=== PATIENT | female | born 1930 | race Caucasian/White ===

== ENCOUNTER 2018-08-26 19:00 | Inpatient (IN) | payer BC, MEDICARE ==
[~2018-08-26] VITALS: Ht 162.6 cm; Wt 60.5 kg
[2018-08-26] MEDS ORDERED: FURO40TA4 PO (19:57)
[2018-08-26] MEDS ORDERED: LEVO100T8 PO (19:57)
[2018-08-26] MEDS ORDERED: FUROSEMIDE 20 MG INJ IV ONE (22:30)
[2018-08-26] MEDS ORDERED: ACETAMINOPHEN 325 MG TAB PO PRN (22:30)
[2018-08-26] MEDS ORDERED: ONDANSETRON 4 MG INJ IV PRN (22:30)
[2018-08-26 23:48] VITALS: Ht 162.6 cm; Wt 60.5 kg
[2018-08-27] VITALS: BP 98/55; PULSE 68; RESP 16
--- NOTE | 2018-08-27 00:04 | ERD ---
ER Documentation Chief Complaint Chief Complaint s/p ground level fall with substantial swelling of bilateral feet HPI 88-year-old female with a history of hypothyroidism brought in by ambulance after a ground-level fall at home. She was walking with her walker in her den when she states that she got twisted up and fell. She complains of bilateral lower extremity pain. She has had bilateral lower extremity severe swelling for the past 2 months which she has not addressed with her primary care doctor. She denies any head injury or loss of consciousness. No chest pain or shortness of breath. She denies any hip pain. ROS All systems reviewed and are negative except as per history of present illness. Medications Home Meds Reported Medications Furosemide* (Furosemide*) 40 Mg Tablet, 40 MG PO DAILY, TAB 08/26/18 Levothyroxine Sodium* (Levothyroxine Sodium*) 100 Mcg Tablet, 100 MCG PO BEFORE BREAKFAST, #30 TAB 08/26/18 Allergies Allergies: Coded Allergies: No Known Allergy (Unverified , 08/26/18) PMhx/Soc Hx Miscellaneous Medical Probl: Yes (HYPOTHYROID) Hx Alcohol Use: No Hx Substance Use: No Hx Tobacco Use: No Smoking Status: Never smoker FmHx Family History: No diabetes Physical Exam Vitals Vital Signs Date Temp Pulse Resp B/P (MAP) Pulse Ox O2 O2 Flow FiO2 Time Delivery Rate 08/26/18 100 18 111/55 95 Room Air 22:50 (73) 08/26/18 95 18 100/71 96 Room Air 22:04 (81) 08/26/18 98.1 106 18 145/60 98 19:15 (88) Physical Exam Const: No acute distress, nontoxic, unkempt Head: Atraumatic Eyes: Normal Conjunctiva ENT: Normal External Ears, Nose and Mouth. Neck: Full range of motion. No meningismus. Resp: Clear to auscultation bilaterally Cardio: Regular rate and rhythm, no murmurs. 2+ distal pulses in all 4 extremities Abd: Soft, non tender, non distended. Normal bowel sounds Skin: No petechiae or rashes Back: No midline or flank tenderness Ext: No cyanosis. Bilateral lower extremity 4+ pitting edema, symmetric. Evidence of contusion with skin avulsions to the right lateral lower leg. No obvious deformities. Limited range of motion at all joints of bilateral lower extremity secondary to pain. Pelvis stable. Hips nontender. Neur: Awake and alert oriented x3, cranial nerves intact, strength and sensations grossly intact but somewhat limited in the lower extremities due to pain. Psych: Normal Mood and Affect Result Diagram: 08/26/18202408/26/182024 Results 24 hrs Laboratory Tests Test 08/26/18 20:25 08/26/18 20:28 08/26/18 22:56 White Blood Count 13.5 10^3/ul Red Blood Count 3.92 10^6/ul Hemoglobin 12.6 g/dl Hematocrit 40.0 % Mean Corpuscular Volume 102.0 fl Mean Corpuscular Hemoglobin 32.1 pg Mean Corpuscular Hemoglobin Concent 31.5 g/dl Red Cell Distribution Width 14.5 % Platelet Count 264 10^3/UL Mean Platelet Volume 9.2 fl Immature Granulocytes % 0.600 % Neutrophils % 93.0 % Lymphocytes % 3.3 % Monocytes % 3.0 % Eosinophils % 0.0 % Basophils % 0.1 % Nucleated Red Blood Cells % 0.0 /100WBC Immature Granulocytes # 0.080 10^3/ul Neutrophils # 12.6 10^3/ul Lymphocytes # 0.5 10^3/ul Monocytes # 0.4 10^3/ul Eosinophils # 0.0 10^3/ul Basophils # 0.0 10^3/ul Nucleated Red Blood Cells # 0.0 10^3/ul Sodium Level 137 mmol/L Potassium Level 3.9 mmol/L Chloride Level 100 mmol/L Carbon Dioxide Level 28 mmol/L Anion Gap 9 Blood Urea Nitrogen 37 mg/dl Creatinine 1.58 mg/dl Est Glomerular Filtrat Rate mL/min mL/min Glucose Level 157 mg/dl Calcium Level 8.8 mg/dl Total Bilirubin 0.2 mg/dl Direct Bilirubin 0.00 mg/dl Indirect Bilirubin 0.2 mg/dl Aspartate Amino Transf (AST/SGOT) 30 IU/L Alanine Aminotransferase (ALT/SGPT) 14 IU/L Alkaline Phosphatase 104 IU/L B-Type Natriuretic Peptide 56600 PG/ML Total Protein 6.2 g/dl Albumin 3.2 g/dl Globulin 3.00 g/dl Albumin/Globulin Ratio 1.06 Prothrombin Time 14.9 Sec Prothrombin Time Ratio 1.2 INR International Normalized Ratio 1.16 Activated Partial Thromboplast Time 34.9 Sec Troponin I 0.041 ng/ml Current Medications Medications Dose Sig/Peña Start Time Status Last (Trade) Ordered Route PRN Stop Time Admin Dose Reason Admin Furosemide 20 mg ONCE ONCE 08/26/18 DC 08/26/18 (Lasix) IV 22:30 08/26/18 22:44 22:31 Ondansetron 4 mg BRIDGE ORDER 08/26/18 HCl (Zofran PRN IV 22:30 08/27/18 Inj) NAUSEA/VOMITI 22:29 NG 650 mg ER BRIDGE 08/26/18 Acetaminophen PRN PO 22:30 08/27/18 (Tylenol .MILD PAIN 22:29 Tab) 1-3 OR TEMP Procedures/MDM EMERGENT LABS AND DIAGNOSTIC STUDIES: Lab Results above were reviewed and interpreted by me. CBC: Leukocytosis, unclear etiology CMP: Elevated BUN and creatinine, consistent with renal insufficiency. Mild hypoalbuminemia. No evidence of electrolyte abnormality, renal failure, hypoglycemia, liver failure Troponin within normal limits, not indicative of cardiac ischemia BNP elevated UA: Pending 12-lead EKG was interpreted by Lindsay Robles MD: Sinus rhythm with first-degree AV block at 91 bpm Left bundle branch block No acute ST or T wave changes suggestive of acute ischemia or STEMI. Radiology Results as interpreted by Radiology below were reviewed by SVarghese Robles MD: Chest x-ray shows cardiomegaly with pulmonary vascular congestion X-ray right tib-fib and femur show evidence of tibial plateau fracture Left femur and tib-fib x-ray shows no acute abnormalities Initial Nursing notes reviewed. Previous Medical Records requested via the Electronic Health Record. EMERGENCY DEPARTMENT COURSE / MEDICAL DECISION MAKING: Patient is presenting after a ground-level fall. On exam she appears to not be taking care of herself at all. She has this bilateral lower extremity edema that has not been addressed. I suspect she most likely has heart failure. Her labs were notable for evidence of renal insufficiency and significantly elevated BNP without other significant abnormalities. Her clinical picture is consistent with heart failure. Lasix 20 mg IV given for diuresis. X-rays of bilateral lower extremities were done showing evidence of a right tibial plateau fracture of with depression. I spoke with the orthopedist adhesion tester and he recommended x- rays of the knee as well as CT, which were ordered. I spoke with the doctor on- call for the patient's primary care doctor, Dr. Downing, who accepted the patient for admission to [facility]. Accepting Care Team: Current data and ongoing care discussed. Time: Time of admission Primary Provider: Dr. Kay Consulting: Dr. Martins with Ortho Outstanding Data: CT right lower extremity Critical Care Time: 35 minutes Treatments/Evaluations: Close monitoring and treatment of unstable vital signs, cardiorespiratory, and neurologic status, while maintaining tight balance of fluid, respiratory, and cardiac interventions. This time includes discussing the case with the patient and the patients family. This time does not include all procedures stated elsewhere in this record. This time also includes reviewing old records, labs and radiological studies. This time includes examining and re- examining the patient. Additionally, this time also includes arranging care with admitting and consulting physicians. Departure Diagnosis: Primary Impression: Fall Encounter type: initial encounter Qualified Codes: W19.XXXA - Unspecified fall, initial encounter Additional Impressions: Acute CHF Heart failure type: unspecified Qualified Codes: I50.9 - Heart failure, unspecified Tibial plateau fracture, right Encounter type: initial encounter Fracture type: closed Qualified Codes: S82.141A - Displaced bicondylar fracture of right tibia, initial encounter for closed fracture SIMÓN (acute kidney injury) Condition: MERY Us MD Aug 27, 2018 00:02
[2018-08-27 02:30] VITALS: BP 94/43; PULSE 75; RESP 19
[2018-08-27] MEDS ORDERED: SPIR100T4 PO (03:08)
[2018-08-27 07:46] VITALS: BP 91/46; PULSE 81; RESP 17
--- NOTE | 2018-08-27 09:28 | CONS ---
Assessment/Plan Assessment/Plan Hospital Course (Demo Recall) This is an 88-year-old female who sustained an acute Schatzker 3 of the right lateral tibial plateau. The depression is minimal as it is 4 mm at the deepest point but mostly around 2 mm. 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 I am recommending to pursue conservative treatment. The patient is agreeable to this plan. Plan: Nonweightbearing right lower extremity Hinged knee brace on at all times. The hinged should be unlocked for full range of motion as tolerated PT/OT DVT prophylaxis Follow-up in 2 weeks. Consultation Date/Type/Reason Admit Date/Time Aug 26, 2018 at 22:21 Date of Consultation: Aug 27, 2018 Reason for Consultation Right tibial plateau fracture Date/Time of Note DATE: 08/27/18 TIME: 09:18 Hx of Present Illness This is an 88-year-old female with multiple medical problems including severe hypothyroidism, CHF, bilateral lower extremity edema. She fell yesterday and sustained a right knee injury. She was found to have a right tibial plateau fracture in the emergency department. Orthopedics was consulted. Patient denies numbness and tingling. She states she has pain only at the knee. Prior to the fall she states she was a community ambulator did use a walker at times. But was able to ambulate around the house as well as outside the house and do small errands. She did have occasional knee pain prior. She has history of cellulitis in the left lower extremity all times as well as occasional ulcers. Patient denies fever, chills, shortness of breath, chest pain, nausea/vomiting, constipation, diarrhea, numbness, and tingling. Past Medical History Hypothyroidism CHF Chronic bilateral lower extremity edema Home Meds Reported Medications Spironolactone* (Spironolactone*) 100 Mg Tablet, 25 MG PO DAILY, TAB 08/27/18 Furosemide* (Furosemide*) 40 Mg Tablet, 40 MG PO DAILY, TAB 08/26/18 Levothyroxine Sodium* (Levothyroxine Sodium*) 100 Mcg Tablet, 100 MCG PO BEFORE BREAKFAST, #30 TAB 08/26/18 Medications Current Medications Ondansetron HCl (Zofran Inj) 4 mg BRIDGE ORDER PRN IV NAUSEA/VOMITING; Start 08/26/18 at 22:30; Stop 08/27/18 at 22:29 Acetaminophen (Tylenol Tab) 650 mg ER BRIDGE PRN PO .MILD PAIN 1-3 OR TEMP; Start 08/26/18 at 22:30; Stop 08/27/18 at 22:29 Acetaminophen (Tylenol Tab) 650 mg Q8H PRN PO MILD PAIN(1-3)OR ELEVATED TEMP; Start 08/27/18 at 01:00 Allergies: Coded Allergies: No Known Allergy (Unverified , 08/26/18) Past Surgical History Past Surgical Hx: noncontributory Family History Significant Family History: no pertinent family hx Social History Alcohol Use: other (Unknown) Smoking Status: Never smoker Exam/Review of Systems Exam Vitals Vital Signs Date Temp Pulse Resp B/P (MAP) Pulse Ox O2 O2 Flow FiO2 Time Delivery Rate 08/27/18 98.5 81 17 91/46 (61) 97 Room Air 07:46 Exam General: Awake, alert, in no acute distress, pleasant and cooperative Heart: regular rhythm Lungs: breathing comfortably, no tachypnea or dyspnea MUSCULOSKELETAL: Right lower extremity: Skin is intact. There is no ecchymosis. There is a knee effusion. There is tenderness to palpation along the lateral and medial aspect of the knee. There is no gross deformity. The remainder of the extremity is nontender to palpation. There is 2+ pitting edema from her toes to mid thigh. There are skin ulcers in the lower leg in multiple stages of healing. chronic venous stasis changes. Sensation intact to light touch in a sural, saphenous, deep peroneal, superficial peroneal, medial and lateral plantar nerve distribution. Motor is intact, patient able to dorsiflex and plantarflex ankle and extend and flex great toe. Dorsalis Pedis pulse +2, Brisk capillary refill. Compartments are soft. Calves non-tender to palpation bilaterally. Results Result Diagram: 08/27/18 0532 08/27/18 0532 Results 24hrs Laboratory Tests Test 08/26/18 20:25 08/26/18 20:28 08/26/18 22:56 08/27/18 05:32 White Blood Count 13.5 H 9.3 # Red Blood Count 3.92 L 3.75 L Hemoglobin 12.6 11.9 L Hematocrit 40.0 37.1 Mean Corpuscular Volume 102.0 H 98.9 Mean Corpuscular 32.1 31.7 Hemoglobin Mean Corpuscular 31.5 L 32.1 Hemoglobin Concent Red Cell Distribution 14.5 14.6 H Width Platelet Count 264 265 Mean Platelet Volume 9.2 9.3 Immature Granulocytes % 0.600 H 0.300 Neutrophils % 93.0 H 87.3 H Lymphocytes % 3.3 L 7.2 L Monocytes % 3.0 4.8 Eosinophils % 0.0 0.2 Basophils % 0.1 0.2 Nucleated Red Blood 0.0 0.0 Cells % Immature Granulocytes # 0.080 H 0.030 Neutrophils # 12.6 H 8.1 H Lymphocytes # 0.5 L 0.7 L Monocytes # 0.4 0.4 Eosinophils # 0.0 0.0 Basophils # 0.0 0.0 Nucleated Red Blood 0.0 0.0 Cells # Sodium Level 137 138 Potassium Level 3.9 3.7 Chloride Level 100 100 Carbon Dioxide Level 28 32 H Anion Gap 9 6 Blood Urea Nitrogen 37 H 36 H Creatinine 1.58 H 1.31 H Est Glomerular Filtrat Rate mL/min Glucose Level 157 103 # Calcium Level 8.8 8.6 Total Bilirubin 0.2 0.5 Direct Bilirubin 0.00 0.00 Indirect Bilirubin 0.2 0.5 Aspartate Amino 30 37 Transf (AST/SGOT) Alanine 14 12 L Aminotransferase (ALT/SG PT) Alkaline Phosphatase 104 106 B-Type Natriuretic 16677 H Peptide Total Protein 6.2 6.0 L Albumin 3.2 L 2.9 L Globulin 3.00 3.10 Albumin/Globulin Ratio 1.06 0.93 Prothrombin Time 14.9 15.0 H Prothrombin Time Ratio 1.2 1.2 INR International 1.16 1.17 Normalized Ratio Activated 34.9 Partial Thromboplast Time Troponin I 0.041 Thyroid Stimulating 10.900 H Hormone (TSH) Free Thyroxine 1.03 Imaging Imaging Hip, femur, knee, tibia x-rays were personally reviewed. She has an acute fracture of her lateral tibial plateau of her right knee. This is a pure depression Schatzker 3. She has moderate severe tricompartmental arthritis as well as severe chondrocalcinosis of the lateral meniscus. Alignment is relatively well-preserved. Diffuse and severe demineralization of the bone CT scan of the right knee was personally reviewed. Demonstrates an isolated depression fracture of the lateral tibial plateau. This is a Schatzker 3. It is depressed between 2-4 mm at the deepest point. There is no significant widening of the joint. Moderate severe tricompartmental arthritis and chondrocalcinosis of the menisci. Medications Medication Current Medications Ondansetron HCl (Zofran Inj) 4 mg BRIDGE ORDER PRN IV NAUSEA/VOMITING; Start 08/26/18 at 22:30; Stop 08/27/18 at 22:29 Acetaminophen (Tylenol Tab) 650 mg ER BRIDGE PRN PO .MILD PAIN 1-3 OR TEMP; Start 08/26/18 at 22:30; Stop 08/27/18 at 22:29 Acetaminophen (Tylenol Tab) 650 mg Q8H PRN PO MILD PAIN(1-3)OR ELEVATED TEMP; Start 08/27/18 at 01:00 FRANCES BA MD Aug 27, 2018 09:28
[2018-08-27 14:00] VITALS: BP 93/48; PULSE 81; RESP 17
[2018-08-27] MEDS ORDERED: LEVOTHYROXINE 100 MCG TAB PO ONE (18:30)
[2018-08-27 19:32] VITALS: BP 100/50; PULSE 92; RESP 20
--- NOTE | 2018-08-27 23:29 | HP ---
Date/Time of Note Date/Time of Note DATE: 08/27/18 TIME: 23:06 Assessment/Plan VTE Prophylaxis Risk score (from Ns)>0 risk: 5 SCD applied (from Ns): No SCD contraindicated: bilateral LE trauma Pharmacological prophylaxis: other Pharm contraindication: other Lines/Catheters IV Catheter Type [facility]from [facility]): [employer] line still needed: No Assessment/Plan Problems: (1) Tibial plateau fracture, right Status: Acute Comment: No surgical intervention at this time. Pain control. Non weight bearing on right lower extremity with knee immobilization and PT evaluation for probable inpatient rehab.. Appreciate Dr. Martins input. Qualifiers: Encounter type: initial encounter Fracture type: closed Qualified Codes: S82.141A - Displaced bicondylar fracture of right tibia, initial encounter for closed fracture (2) Edema of both lower extremities Status: Chronic Comment: Given patient's exam, history of furosemide use and CXR showing cardiomegaly suspect congestive heart failure. Cardiology consult and echocardiogram requested. (3) SIMÓN (acute kidney injury) Status: Acute Comment: possible pre-renal given some of patient's physical exam and imaging studies. Cardiology consult and echocardiogram requested. Optimizing cardiac function will hopefully improve renal function. Cont Hosp Indication/DC Plan: wireless retail manager to assist with senior living placement. Result Diagram: 08/27/18 0532 08/27/18 0532 Results 24hrs Laboratory Tests Test 08/27/18 05:32 White Blood Count 9.3 # Red Blood Count 3.75 L Hemoglobin 11.9 L Hematocrit 37.1 Mean Corpuscular Volume 98.9 Mean Corpuscular Hemoglobin 31.7 Mean Corpuscular Hemoglobin Concent 32.1 Red Cell Distribution Width 14.6 H Platelet Count 265 Mean Platelet Volume 9.3 Immature Granulocytes % 0.300 Neutrophils % 87.3 H Lymphocytes % 7.2 L Monocytes % 4.8 Eosinophils % 0.2 Basophils % 0.2 Nucleated Red Blood Cells % 0.0 Immature Granulocytes # 0.030 Neutrophils # 8.1 H Lymphocytes # 0.7 L Monocytes # 0.4 Eosinophils # 0.0 Basophils # 0.0 Nucleated Red Blood Cells # 0.0 Prothrombin Time 15.0 H Prothrombin Time Ratio 1.2 INR International Normalized Ratio 1.17 Sodium Level 138 Potassium Level 3.7 Chloride Level 100 Carbon Dioxide Level 32 H Anion Gap 6 Blood Urea Nitrogen 36 H Creatinine 1.31 H Est Glomerular Filtrat Rate mL/min Glucose Level 103 # Calcium Level 8.6 Total Bilirubin 0.5 Direct Bilirubin 0.00 Indirect Bilirubin 0.5 Aspartate Amino Transf (AST/SGOT) 37 Alanine Aminotransferase (ALT/SGPT) 12 L Alkaline Phosphatase 106 Total Protein 6.0 L Albumin 2.9 L Globulin 3.10 Albumin/Globulin Ratio 0.93 Thyroid Stimulating Hormone (TSH) 10.900 H Free Thyroxine 1.03 HPI/ROS Admit Date/Time Admit Date/Time Aug 26, 2018 at 22:21 Patient seen and examed Aug 27, 2018 @ 17:00 Hx of Present Illness 88 year old woman status post ground level fall after walker collapsed. Unable to get up on her own or with assistance from sister. Paramedics called and patient brought to [facility] for evaluation. Denies loss of consciousness. In [facility] patient underwent a series of imaging both X-Ray and CT scan. Found to have a right tibial plateau fracture. Admitted for further management. Dr. Martins from orthopedic service consulted. ROS after nine system review pertinent positives and negatives noted below Constitutional: chills Respiratory: shortness of breath (none) Cardiovascular: chest pain (none), edema (bilateral lower extremities ) Musculoskeletal: bone/joint pain ( right knee, right ankle, left knee) PMH/Family/Social Past Medical History retired secondary school special ed teacher. lives with younger sister Medical History: congestive heart failure, hypothyroid Medications Current Medications Acetaminophen (Tylenol Tab) 650 mg Q8H PRN PO MILD PAIN(1-3)OR ELEVATED TEMP; Start 08/27/18 at 01:00 Furosemide (Lasix) 20 mg DAILY PO ; Start 08/28/18 at 09:00 Levothyroxine Sodium (Synthroid) 100 mcg DAILY@06 PO ; Start 08/28/18 at 06:00 Acetaminophen/ Hydrocodone Bitart ([facility] (5/325)) 1 tab Q6H PRN PO MODERATE PAIN LEVEL 4-6; Start 08/27/18 at 19:00 Coded Allergies: No Known Allergy (Unverified , 08/26/18) Past Surgical History Past Surgical Hx: noncontributory, abd aortic aneurysmectomy Family History Significant Family History: no pertinent family hx Social History Alcohol Use: none Smoking Status: Never smoker Drug Use: none Exam/Review of Systems Vital Signs Vitals Vital Signs Date Temp Pulse Resp B/P (MAP) Pulse Ox O2 O2 Flow FiO2 Time Delivery Rate 08/27/18 99.0 92 20 100/50 95 19:32 (67) 08/27/18 Room Air 14:00 Exam Constitutional: alert, oriented, other (disheveled) Head: normocephalic Eyes: nl conjunctiva, EOMI ENMT: mucosa pink and moist Neck: supple, non-tender Respiratory: clear to auscultation Cardiovascular: regular rate and rhythm, systolic murmur Gastrointestinal: soft, nl liver, spleen, non-tender Musculoskeletal: swelling Extremities: edema (right knee), pitting pedal edema, tenderness (right knee) Neurological: MEDICAL CENTER MANAGER II-XII intact, nl mental status, nl speech Skin: nl GILBERTO Buckley MD Aug 27, 2018 23:17
[2018-08-28 01:55] VITALS: BP 97/51; PULSE 82; RESP 18
[2018-08-28] MEDS: LEVOTHYROXINE 100 MCG TAB PO SCH (05:18)
[2018-08-28 07:33] VITALS: BP 100/55; PULSE 81; RESP 18
[2018-08-28] MEDS: FUROSEMIDE 20 MG TAB PO SCH (07:38)
[2018-08-28 14:00] VITALS: BP 106/53; PULSE 89; RESP 18
--- NOTE | 2018-08-28 14:09 | RADRPT ---
Echocardiogram Report Patient Name: Dennis GIBSONtient ID: [id number] : 1930 (88y 3m)Study Date: 08/28/2018 9:00:04 AM Gender: FAccession #: [id number] Tech: CIPRIANO Location: Ref.Physician: GILBERTO NÚÑEZ Height(Cm): BSA: Weight(Kg): Quality: GoodAccount #: Procedures: Echocardiographic Report: Transthoracic echocardiogram with complete 2D, M-Mode, and doppler examination. Indications: Cardiomegaly. Measurements: 2D/M Mode Doppler Measurement Value Normal Range Measurement Value Normal Range LVIDd 2D 5.6 [ 3.8 - 5.2 ] cm JILLIAN Vmax 1.9 [ 2.0 - 4.0 ] cm2 LVIDs 2D 5.1 [ 2.2 - 3.5 ] cm AV Mean Deven 1.2 [ 70.0 - 90.0 ] cm/sec LVPWd 2D 1.0 [ 0.6 - 0.9 ] cm AV Mean PG 6.0 [ 2.0 - 4.0 ] mmHg IVSd 2D 1.1 [ 0.6 - 0.9 ] cm AV Peak Deven 1.5 [ 100.0 - 170.0 ] cm/sec IVS/LVPW 2D 1.0 ratio AV Peak PG 9.0 [ 2.0 - 9.0 ] mmHg LVOT Diam 1.8 [ 2.1 - 2.5 ] cm AV VTI 33.0 cm LVOT Area 2.5 cm2 LVOT Peak Deven 1.1 [ 70.0 - 110.0 ] cm/sec LVOT Peak PG 5.0 [ 2.0 - 6.0 ] mmHg MV E Peak Deven 1.4 [ 60.0 - 130.0 ] cm/sec MV A Peak Deven 1.6 [ 100.0 - 120.0 ] cm/sec MV E/A 0.9 [ 0.8 - 1.5 ] ratio MV Decel Time 187 [ 104 - 258 ] msec Lat E` Deven 0.1 [ 10.0 - 15.0 ] cm/sec Med E` Deven 0.1 cm/sec MV E/A 0.9 [ 0.8 - 1.5 ] ratio TR Peak Deven 3.4 [ 100.0 - 280.0 ] cm/sec TR Peak PG 47.0 mmHg PV Peak Deven 0.8 [ 40.0 - 80.0 ] cm/sec PV Peak PG 3.0 mmHg Findings: Left Ventricle: Normal left ventricular wall thickness. Borderline enlargement of left ventricle cavity. Severe left ventricular systolic dysfunction. Ejection fraction is visually estimated at 25 %. Abnormal Diastolic Function. Right Ventricle: Normal right ventricular size. Normal right ventricular systolic function. Left Atrium: There is mild-moderate enlargement of left atrium. Right Atrium: The right atrium is normal in size. Mitral Valve: Mitral valve leaflets appear moderately thickened. Moderate mitral leaflet calcification. Mild mitral annular calcification. Moderate mitral valve regurgitation. Aortic Valve: Normal appearance of the aortic valve. No significant aortic stenosis with trivial insufficiency. Tricuspid Valve: Normal appearance of the tricuspid valve. Right ventricular systolic pressure is consistent with moderate pulmonary hypertension. Estimated peak PA systolic pressure 50 mmHg. There is mild tricuspid regurgitation. Pulmonic Valve: Normal pulmonic valve appearance. There is trace pulmonic regurgitation. Pericardium: Normal pericardium with no significant pericardial effusion. Aorta: Normal aortic root. IVC: Normal size and normal respiratory collapse consistent with normal right atrial pressure. Conclusions: Normal left ventricular wall thickness. Borderline enlargement of left ventricle cavity. Severe left ventricular systolic dysfunction. Ejection fraction is visually estimated at 25 %. Abnormal Diastolic Function. Normal right ventricular size. Normal right ventricular systolic function. There is mild-moderate enlargement of left atrium. The right atrium is normal in size. Moderate mitral valve regurgitation. No significant aortic stenosis with trivial insufficiency. Right ventricular systolic pressure is consistent with moderate pulmonary hypertension. Estimated peak PA systolic pressure 50 mmHg. There is mild tricuspid regurgitation. Normal pericardium with no significant pericardial effusion. Electronically Signed By: Noel Rose 2018-08-28 14:08:32 PST
--- NOTE | 2018-08-28 14:39 | CONS ---
Assessment/Plan Cardiology NYHA: II Heart Failure Type: Chronic Heart Failure Type: Systolic Assessment/Plan Hospital Course (Demo Recall) Mechanical fall with lower extremity fracture Chronic systolic congestive heart failure Cardiomyopathy with left ventricular ejection fraction 25% Mitral valve regurgitation Acute kidney injury, improved -Patient with mechanical fall with lower extremity fracture. Patient had echocardiogram done on this admission which shows left ventricular ejection fraction 25% with moderate mitral valve regurgitation. -Patient does have lower extremity edema but as per her, this is been long- standing. She denies any shortness of breath and chest x-ray with no evidence of significant pulmonary vascular congestion -Creatinine has since improved, will continue maintenance Lasix as renal function and blood pressure permits -Given depressed left ventricular ejection fraction and mitral valve regurgitation, patient would benefit from MADDY inhibitor for afterload reduction. We will start low-dose and continue as renal function and blood pressure permits -Otherwise, no further inpatient cardiac workup needed at the current time Consultation Date/Type/Reason Admit Date/Time Aug 26, 2018 at 22:21 Patient seen and examed Aug 27, 2018 @ 17:00 Type of Consult Cardiology Reason for Consultation Cardia myopathy Date/Time of Note DATE: 08/28/18 TIME: 14:31 Hx of Present Illness This is an 88-year-old female who presents after a mechanical fall. Patient fell with fracture to her lower extremity. No loss of consciousness, no dizziness. She has also been having lower extremity edema going on for the past few months. She denies shortness of breath, dizziness or palpitations. Patient was found to have a murmur on examination and for this reason cardiology consultation was requested. 12 point review of systems was performed with all pertinent positives and negatives mentioned above and all else is negative Past Medical History Medical History: congestive heart failure, hypothyroid Home Meds Reported Medications Spironolactone* (Spironolactone*) 100 Mg Tablet, 25 MG PO DAILY, TAB 08/27/18 Furosemide* (Furosemide*) 40 Mg Tablet, 40 MG PO DAILY, TAB 08/26/18 Levothyroxine Sodium* (Levothyroxine Sodium*) 100 Mcg Tablet, 100 MCG PO BEFORE BREAKFAST, #30 TAB 08/26/18 Medications Current Medications Acetaminophen (Tylenol Tab) 650 mg Q8H PRN PO MILD PAIN(1-3)OR ELEVATED TEMP; Start 08/27/18 at 01:00 Furosemide (Lasix) 20 mg DAILY PO ; Start 08/28/18 at 09:00 Levothyroxine Sodium (Synthroid) 100 mcg DAILY@06 PO Last administered on 08/28/18at 05:18; Admin Dose 100 MCG; Start 08/28/18 at 06:00 Acetaminophen/ Hydrocodone Bitart ([place] (5/325)) 1 tab Q6H PRN PO MODERATE PAIN LEVEL 4-6; Start 08/27/18 at 19:00 Lisinopril (Zestril) 2.5 mg DAILY PO ; Start 08/29/18 at 09:00; Status UNV Allergies: Coded Allergies: No Known Allergy (Unverified , 08/26/18) Past Surgical History Past Surgical Hx: noncontributory, abd aortic aneurysmectomy Family History Significant Family History: no pertinent family hx Social History Alcohol Use: none Smoking Status: Never smoker Drug Use: none Exam/Review of Systems Vital Signs Vitals Vital Signs Date Temp Pulse Resp B/P (MAP) Pulse Ox O2 O2 Flow FiO2 Time Delivery Rate 08/28/18 98.2 81 18 100/55 96 Room Air 07:33 (70) Intake and Output 08/27/18 08/27/18 08/28/18 1414:59 22:59 06:59 IntakeIntake Total 560 ml 240 ml BalanceBalance 560 ml 240 ml Exam Constitutional: alert, oriented (No apparent distress) Head: normocephalic Respiratory: other (Coarse breath sounds bilaterally, no wheezing) Cardiovascular: regular rate and rhythm, systolic murmur (S1-S2 heard) Gastrointestinal: soft, non-tender, bowel sounds Extremities: edema Labs Result Diagram: 08/27/1853108/27/18531 Imaging Imaging ECG demonstrates sinus rhythm at 91 bpm, first-degree AV block, left ventricular hypertrophy, intra-ventricular conduction delay with QRS 166 ms, nonspecific ST abnormalities Medications Medications Current Medications Acetaminophen (Tylenol Tab) 650 mg Q8H PRN PO MILD PAIN(1-3)OR ELEVATED TEMP; Start 08/27/18 at 01:00 Furosemide (Lasix) 20 mg DAILY PO ; Start 08/28/18 at 09:00 Levothyroxine Sodium (Synthroid) 100 mcg DAILY@06 PO Last administered on 08/28/18at 05:18; Admin Dose 100 MCG; Start 08/28/18 at 06:00 Acetaminophen/ Hydrocodone Bitart ([place] (5/325)) 1 tab Q6H PRN PO MODERATE PAIN LEVEL 4-6; Start 08/27/18 at 19:00 Lisinopril (Zestril) 2.5 mg DAILY PO ; Start 08/29/18 at 09:00; Status UNNoel Pacheco DO Aug 28, 2018 14:39
[2018-08-28] MEDS: LISINOPRIL 5 MG TAB PO SCH (15:26)
--- NOTE | 2018-08-28 17:03 | PN ---
Date/Time of Note Date/Time of Note DATE: 08/28/18 TIME: 16:57 Assessment/Plan VTE Prophylaxis Risk score (from Nsg)>0 risk: 3 SCD applied (from Ns): No SCD contraindicated: other Pharmacological prophylaxis: NA/contraindicated Pharm contraindication: other (skin poor, edema''fx) Lines/Catheters IV Catheter Type (from Nrsg): Peripheral IV Assessment/Plan Result Diagram: 08/27/18 0532 08/27/18 0532 Subjective 24 Hr Interval Summary Free Text/Dictation vry independent older woman who routinely ignores medical instructions and probably not taking thyroid meds approprioately. fell sustaining tibial plateau fx, for conservative care w brace. also poor ejection fx w prior hx chf, now no evidence. chronic lower ext edema, lymphedema toe nails, general condition unkempt for pt, aru eval vs snf' alert, knee hurts with movement, chr edema feet. toe nails long and feet dirty. lungs clear, hr ok cardiac evaluation appreciated recheck [facility] podiatry consult on friday Musculoskeletal: bone/joint pain Exam/Review of Systems Exam Vitals Vital Signs Date Temp Pulse Resp B/P (MAP) Pulse Ox O2 O2 Flow FiO2 Time Delivery Rate 08/28/18 98.2 89 18 106/53 95 Room Air 14:00 (70) Intake and Output 08/27/18 08/27/18 08/28/18 1414:59 22:59 06:59 IntakeIntake Total 560 ml 240 ml BalanceBalance 560 ml 240 ml Medications Medication Current Medications Acetaminophen (Tylenol Tab) 650 mg Q8H PRN PO MILD PAIN(1-3)OR ELEVATED TEMP; Start 08/27/18 at 01:00 Furosemide (Lasix) 20 mg DAILY PO ; Start 08/28/18 at 09:00 Levothyroxine Sodium (Synthroid) 100 mcg DAILY@06 PO Last administered on 08/28/18at 05:18; Admin Dose 100 MCG; Start 08/28/18 at 06:00 Acetaminophen/ Hydrocodone Bitart ([place] (5/325)) 1 tab Q6H PRN PO MODERATE PAIN LEVEL 4-6; Start 08/27/18 at 19:00 Lisinopril (Zestril) 2.5 mg DAILY PO Last administered on 08/28/18at 15:26; Admin Dose 2.5 MG; Start 08/28/18 at 15:00 MARYCRUZ PRASAD MD Aug 28, 2018 17:03
[2018-08-28] MEDS: HYDROCODONE/APAP (5/325) TAB PO PRN (18:10)
[2018-08-28 19:36] VITALS: BP 92/48; PULSE 78; RESP 18
[2018-08-29 01:56] VITALS: BP 90/50; PULSE 71; RESP 18
[2018-08-29] MEDS: LEVOTHYROXINE 100 MCG TAB PO SCH (05:43)
[2018-08-29] MEDS: LISINOPRIL 5 MG TAB PO SCH (07:45)
[2018-08-29] MEDS: FUROSEMIDE 20 MG TAB PO SCH (07:45)
[2018-08-29 08:00] VITALS: BP 95/50; PULSE 72; RESP 18
[2018-08-29 14:00] VITALS: BP 93/45; PULSE 83; RESP 18
--- NOTE | 2018-08-29 15:54 | PN ---
Date/Time of Note Date/Time of Note DATE: 08/29/18 TIME: 15:53 Assessment/Plan VTE Prophylaxis Risk score (from [facility]0 risk: 4 SCD applied (from [facility]): No SCD contraindicated: bilateral LE trauma Pharmacological prophylaxis: heparin Lines/Catheters IV C[facility]ter Type (from [facility]): Peripheral IV Assessment/Plan Problems: (1) Tibial plateau fracture, right Status: Acute Comment: Try for acute rehabilitation evaluation. Continue with care Qualifiers: Encounter type: initial encounter Fracture type: closed Qualified Codes: S82.141A - Displaced bicondylar fracture of right tibia, initial encounter for closed fracture (2) Acute CHF Status: Acute Comment: Adjustment of medications to improve afterload reduction Qualifiers: Heart failure type: unspecified Qualified Codes: I50.9 - Heart failure, unspecified Result Diagram: 08/29/18 0725 08/29/18 0556 Results 24hrs Laboratory Tests Test 08/29/18 05:56 08/29/18 07:25 Sodium Level 141 Potassium Level 4.5 Chloride Level 106 Carbon Dioxide Level 30 Anion Gap 5 Blood Urea Nitrogen 25 H Creatinine 0.74 Est Glomerular Filtrat Rate mL/min Glucose Level 81 Calcium Level 8.6 White Blood Count 6.0 # Red Blood Count 3.37 L Hemoglobin 11.1 L Hematocrit 35.1 L Mean Corpuscular Volume 104.2 H Mean Corpuscular Hemoglobin 32.9 Mean Corpuscular Hemoglobin Concent 31.6 L Red Cell Distribution Width 14.9 H Platelet Count 235 Mean Platelet Volume 9.2 Immature Granulocytes % 0.300 Neutrophils % 80.2 H Lymphocytes % 12.0 L Monocytes % 5.7 Eosinophils % 1.5 Basophils % 0.3 Nucleated Red Blood Cells % 0.0 Immature Granulocytes # 0.020 Neutrophils # 4.8 Lymphocytes # 0.7 L Monocytes # 0.3 Eosinophils # 0.1 Basophils # 0.0 Nucleated Red Blood Cells # 0.0 Subjective 24 Hr Interval Summary Free Text/Dictation Patient resting easily awakened. No complaints Constitutional: no complaints Respiratory: no complaints Cardiovascular: no complaints Exam/Review of Systems Exam Vitals Vital Signs Date Temp Pulse Resp B/P (MAP) Pulse Ox O2 O2 Flow FiO2 Time Delivery Rate 08/29/18 98.3 72 18 95/50 (65) 96 Room Air 08:00 Intake and Output 08/28/18 08/28/1808/29/19 1414:59 22:59 06:59 IntakeIntake Total 240 ml 240 ml BalanceBalance 240 ml 240 ml Constitutional: alert, oriented Neck: supple, non-tender Respiratory: clear to auscultation, normal air movement Cardiovascular: regular rate and rhythm, nl pulses Results Results 24hrs Laboratory Tests Test 08/29/18 05:56 08/29/18 07:25 Sodium Level 141 Potassium Level 4.5 Chloride Level 106 Carbon Dioxide Level 30 Anion Gap 5 Blood Urea Nitrogen 25 H Creatinine 0.74 Est Glomerular Filtrat Rate mL/min Glucose Level 81 Calcium Level 8.6 White Blood Count 6.0 # Red Blood Count 3.37 L Hemoglobin 11.1 L Hematocrit 35.1 L Mean Corpuscular Volume 104.2 H Mean Corpuscular Hemoglobin 32.9 Mean Corpuscular Hemoglobin Concent 31.6 L Red Cell Distribution Width 14.9 H Platelet Count 235 Mean Platelet Volume 9.2 Immature Granulocytes % 0.300 Neutrophils % 80.2 H Lymphocytes % 12.0 L Monocytes % 5.7 Eosinophils % 1.5 Basophils % 0.3 Nucleated Red Blood Cells % 0.0 Immature Granulocytes # 0.020 Neutrophils # 4.8 Lymphocytes # 0.7 L Monocytes # 0.3 Eosinophils # 0.1 Basophils # 0.0 Nucleated Red Blood Cells # 0.0 Medications Medication Current Medications Acetaminophen (Tylenol Tab) 650 mg Q8H PRN PO MILD PAIN(1-3)OR ELEVATED TEMP; Start 08/27/18 at 01:00 Furosemide (Lasix) 20 mg DAILY PO ; Start 08/28/18 at 09:00 Levothyroxine Sodium (Synthroid) 100 mcg DAILY@06 PO Last administered on 08/28/18at 05:18; Admin Dose 100 MCG; Start 08/28/18 at 06:00 Acetaminophen/ Hydrocodone Bitart ([place] (5/325)) 1 tab Q6H PRN PO MODERATE PAIN LEVEL 4-6 Last administered on 08/28/18at 18:10; Admin Dose 1 TAB; Start 08/27/18 at 19:00 Lisinopril (Zestril) 2.5 mg DAILY PO Last administered on 08/28/18at 15:26; Admin Dose 2.5 MG; Start 08/28/18 at 15:00 LAYLA GIBSON MD Aug 29, 2018 15:54
[2018-08-29 19:41] VITALS: BP 95/54; PULSE 96; RESP 20
[2018-08-30 01:16] VITALS: BP 98/55; PULSE 86; RESP 20
[2018-08-30] MEDS: LEVOTHYROXINE 100 MCG TAB PO SCH (06:05)
[2018-08-30 07:49] VITALS: BP 135/78; PULSE 71; RESP 18
[2018-08-30] MEDS: LISINOPRIL 5 MG TAB PO SCH ×2 (08:11→20:34)
[2018-08-30] MEDS: FUROSEMIDE 20 MG TAB PO SCH (08:11)
--- NOTE | 2018-08-30 12:49 | PN ---
Date/Time of Note Date/Time of Note DATE: 08/30/18 TIME: 12:47 Assessment/Plan VTE Prophylaxis Risk score (from Ns)>0 risk: 10 SCD applied (from [facility]): Yes SCD contraindicated: patient refusal Pharmacological prophylaxis: heparin Lines/Catheters IV Catheter Type (from [facility]): Peripheral IV Assessment/Plan Problems: (1) Tibial plateau fracture, right Status: Acute Comment: Awaiting evaluation for the acute rehabilitation unit Qualifiers: Encounter type: initial encounter Fracture type: closed Qualified Codes: S82.141A - Displaced bicondylar fracture of right tibia, initial encounter for closed fracture (2) Acute CHF Status: Acute Comment: Doing well and tolerating MADDY inhibitor in fact with a rise in blood pressure which is generally very proximal good prognostic sign Qualifiers: Heart failure type: unspecified Qualified Codes: I50.9 - Heart failure, unspecified Result Diagram: 08/29/18 0725 08/29/18 0556 Subjective 24 Hr Interval Summary Free Text/Dictation She reports she is feeling well but still has knee pain Constitutional: no complaints Respiratory: no complaints Cardiovascular: no complaints Gastrointestinal: no complaints Exam/Review of Systems Exam Vitals Vital Signs Date Temp Pulse Resp B/P (MAP) Pulse Ox O2 O2 Flow FiO2 Time Delivery Rate 08/30/18 97.8 71 18 135/78 97 07:49 (97) 08/29/18 Room Air 08:00 Intake and Output 08/29/18 08/29/18 08/30/18 1515:00 23:00 07:00 IntakeIntake Total 640 ml 440 ml OutputOutput Total 0 ml BalanceBalance 640 ml 440 ml 0 ml Constitutional: alert, oriented Respiratory: clear to auscultation, normal air movement Cardiovascular: regular rate and rhythm, nl pulses Gastrointestinal: soft, nl liver, spleen, non-tender Extremities: other (Hypertrophy toenail) Medications Medication Current Medications Acetaminophen (Tylenol Tab) 650 mg Q8H PRN PO MILD PAIN(1-3)OR ELEVATED TEMP; Start 08/27/18 at 01:00 Furosemide (Lasix) 20 mg DAILY PO Last administered on 08/30/18at 08:11; Admin Dose 20 MG; Start 08/28/18 at 09:00 Levothyroxine Sodium (Synthroid) 100 mcg DAILY@06 PO Last administered on 08/21 at 06:05; Admin Dose 100 MCG; Start 08/28/18 at 06:00 Acetaminophen/ Hydrocodone Bitart ([place] (5/325)) 1 tab Q6H PRN PO MODERATE PAIN LEVEL 4-6 Last administered on 08/28/18at 18:10; Admin Dose 1 TAB; Start 08/27/18 at 19:00 Lisinopril (Zestril) 2.5 mg QHS PO ; Start 08/30/18 at 21:00 LAYLA GIBSON MD Aug 30, 2018 12:49
[2018-08-30 14:38] VITALS: BP 90/48; PULSE 71; RESP 16
[2018-08-30 20:05] VITALS: BP 98/48; PULSE 85; RESP 17
--- NOTE | 2018-08-30 23:03 | CONS ---
Assessment/Plan Assessment/Plan Problems: (1) Onychomycosis Comment: Discussed foot care and foot hygiene in detail with patient. Patient will have bedside debridement of her toenails. I recommend foot care and evaluation on an outpatient basis once discharged from the hospital since patient is unable to reach her feet adequately to care for her feet. (2) Hammertoe, bilateral (3) Tibial plateau fracture, right Status: Acute Comment: Under care of orthopedic surgery Qualifiers: Qualified Codes: S82.141A - Displaced bicondylar fracture of right tibia, initial encounter for closed fracture (4) Edema of both lower extremities Status: Chronic (5) Fall Status: Acute Qualifiers: Qualified Codes: W19.XXXA - Unspecified fall, initial encounter Assessment/Plan (Daily) Thank you again for involving me in the care of this patient. If you have any questions regarding this case, please feel free to contact me at pager: or reach me at mobile: [phone]. Consultation Date/Type/Reason Admit Date/Time Aug 26, 2018 at 22:21 Patient seen and examed Aug 27, 2018 @ 17:00 Date of Consultation: Aug 30, 2018 Type of Consult Foot and ankle surgery Reason for Consultation Evaluation of severely dystrophic toenails; foot evaluation. Requesting Provider: LAYLA GIBSON MD Date/Time of Note DATE: 08/30/18 TIME: 22:52 Hx of Present Illness Thank you very much for your kind consultation. As you very well know, this is an 88 year old female patient who is status post ground level fall after walker collapsed. Patient reports difficulty getting up without assistance. Apparently paramedics were called and patient was brought to the ER. Denies loss of co nsciousness, SOB, CP. Patient was found to have a right tibial plateau fracture. I was consulted for evaluation of her feet, especially her severely dystrophic toenails. Patient denies foot pain today and reports no prior injury to her feet. As per history of present illness. Past Medical History As per history of present illness. Medical History: congestive heart failure, hypothyroid Home Meds Reported Medications Spironolactone* (Spironolactone*) 100 Mg Tablet, 25 MG PO DAILY, TAB 08/27/18 Furosemide* (Furosemide*) 40 Mg Tablet, 40 MG PO DAILY, TAB 08/26/18 Levothyroxine Sodium* (Levothyroxine Sodium*) 100 Mcg Tablet, 100 MCG PO BEFORE BREAKFAST, #30 TAB 08/26/18 Medications Current Medications Acetaminophen (Tylenol Tab) 650 mg Q8H PRN PO MILD PAIN(1-3)OR ELEVATED TEMP; Start 08/27/18 at 01:00 Furosemide (Lasix) 20 mg DAILY PO Last administered on 08/30/18at 08:11; Admin Dose 20 MG; Start 08/28/18 at 09:00 Levothyroxine Sodium (Synthroid) 100 mcg DAILY@06 PO Last administered on 08/30/18at 06:05; Admin Dose 100 MCG; Start 08/28/18 at 06:00 Acetaminophen/ Hydrocodone Bitart ([place] (5/325)) 1 tab Q6H PRN PO MODERATE PAIN LEVEL 4-6 Last administered on 08/28/18at 18:10; Admin Dose 1 TAB; Start 08/27/18 at 19:00 Lisinopril (Zestril) 2.5 mg QHS PO ; Start 08/30/18 at 21:00 Allergies: Coded Allergies: No Known Allergy (Unverified , 08/26/18) Past Surgical History Past Surgical Hx: noncontributory, abd aortic aneurysmectomy Social History Alcohol Use: none Smoking Status: Never smoker Drug Use: none Exam/Review of Systems Exam Vitals Vital Signs Date Temp Pulse Resp B/P (MAP) Pulse Ox O2 O2 Flow FiO2 Time Delivery Rate 08/30/18 98.3 85 17 98/48 (65) 95 20:05 08/29/18 Room Air 08:00 Intake and Output 08/29/18 08/29/18 08/30/18 1515:00 23:00 07:00 IntakeIntake Total 640 ml 440 ml OutputOutput Total 0 ml BalanceBalance 640 ml 440 ml 0 ml Exam Patient is laying supine in bed in no acute distress. Patient has bilateral lower extremity edema. No heel decubitus ulceration noted on bilateral feet. There is no evidence of open wound on both of her lower legs and feet. Patient does have severe dystrophic and discolored toenails with subungual debris. Contracted toes noted on bilateral feet. DP and PT are palpable with normal capillary filling time and temperature gradient. Labs reviewed. Results Result Diagram: 08/29/18 0725 08/29/18 0556 Medications Medication Current Medications Acetaminophen (Tylenol Tab) 650 mg Q8H PRN PO MILD PAIN(1-3)OR ELEVATED TEMP; Start 08/27/18 at 01:00 Furosemide (Lasix) 20 mg DAILY PO Last administered on 08/30/18at 08:11; Admin Dose 20 MG; Start 08/28/18 at 09:00 Levothyroxine Sodium (Synthroid) 100 mcg DAILY@06 PO Last administered on 08/30/18at 06:05; Admin Dose 100 MCG; Start 08/28/18 at 06:00 Acetaminophen/ Hydrocodone Bitart ([place] (5/325)) 1 tab Q6H PRN PO MODERATE PAIN LEVEL 4-6 Last administered on 08/28/18at 18:10; Admin Dose 1 TAB; Start 08/27/18 at 19:00 Lisinopril (Zestril) 2.5 mg QHS PO ; Start 08/30/18 at 21:00 BERNARD MARIEE DPM Aug 30, 2018 23:03
[2018-08-31 02:37] VITALS: BP 100/54; PULSE 77; RESP 19
[2018-08-31] MEDS: LEVOTHYROXINE 100 MCG TAB PO SCH (05:49)
[2018-08-31 07:18] VITALS: BP 99/55; PULSE 81; RESP 16
[2018-08-31 09:09] VITALS: BP 114/57; PULSE 91
[2018-08-31] MEDS: FUROSEMIDE 20 MG TAB PO SCH (09:10)
[2018-08-31] MEDS: ACETAMINOPHEN 325 MG TAB PO PRN (12:06)
--- NOTE | 2018-08-31 12:44 | PN ---
Date/Time of Note Date/Time of Note DATE: 08/31/18 TIME: 12:38 Assessment/Plan VTE Prophylaxis Risk score (from Nsg)>0 risk: 10 SCD applied (from Ns): No SCD contraindicated: bilateral LE trauma (fracture rt lg) Pharmacological prophylaxis: NA/contraindicated Pharm contraindication: other (fx) Lines/Catheters IV Catheter Type (from Nrsg): Peripheral IV Urinary Cath still in place: No Assessment/Plan Result Diagram: 08/29/18 0725 08/29/18 0556 Subjective 24 Hr Interval Summary Free Text/Dictation rt tibial plateau fx. now in brace, nwb, transfer training, may be up awaiting aru acceptance hypothyroid, on rx hbp, bp ok on current meds ashd, poor ef, stable on lasix, kemal for now difficulty with self care alert, talkative. lungs sound clear, hr ok, no edema no lying in bed Musculoskeletal: bone/joint pain Exam/Review of Systems Exam Vitals Vital Signs Date Temp Pulse Resp B/P (MAP) Pulse Ox O2 O2 Flow FiO2 Time Delivery Rate 08/31/18 91 114/57 09:09 (76) 08/31/18 97.6 16 98 Room Air 07:18 Intake and Output 08/30/18 08/30/18 08/31/18 1515:00 23:00 07:00 IntakeIntake Total 240 ml 240 ml BalanceBalance 240 ml 240 ml Medications Medication Current Medications Acetaminophen (Tylenol Tab) 650 mg Q8H PRN PO MILD PAIN(1-3)OR ELEVATED TEMP Last administered on 08/31/18at 12:06; Admin Dose 650 MG; Start 08/27/18 at 01:00 Furosemide (Lasix) 20 mg DAILY PO Last administered on 08/31/18at 09:10; Admin Dose 20 MG; Start 08/28/18 at 09:00 Levothyroxine Sodium (Synthroid) 100 mcg DAILY@06 PO Last administered on 08/31/18at 05:49; Admin Dose 100 MCG; Start 08/28/18 at 06:00 Acetaminophen/ Hydrocodone Bitart ([place] (5/325)) 1 tab Q6H PRN PO MODERATE PAIN LEVEL 4-6 Last administered on 08/28/18at 18:10; Admin Dose 1 TAB; Start 08/27/18 at 19:00 Lisinopril (Zestril) 2.5 mg QHS PO ; Start 08/30/18 at 21:00 MARYCRUZ PRASAD MD Aug 31, 2018 12:44
[2018-08-31 14:27] VITALS: BP 101/68; PULSE 78; RESP 16
[2018-08-31] MEDS: HYDROCODONE/APAP (5/325) TAB PO PRN (16:22)
--- NOTE | 2018-08-31 18:27 | CONS ---
Assessment/Plan Cardiology NYHA: II Heart Failure Type: Chronic Heart Failure Type: Systolic Assessment/Plan Hospital Course (Demo Recall) Mechanical fall with lower extremity fracture Chronic systolic congestive heart failure Cardiomyopathy with left ventricular ejection fraction 25% Mitral valve regurgitation Acute kidney injury, improved -Continue MADDY inhibitor as renal function and blood pressure tolerates. -Lasix as renal function blood pressure tolerates -If blood pressure remains stable, consider initiation of beta-manuel Consultation Date/Type/Reason Admit Date/Time Aug 27, 2018 at 18:45 Initial Consult Date 08/30/18 Type of Consult Cardiology Requesting Provider: LAYLA GIBSON MD Date/Time of Note DATE: 08/31/18 TIME: 18:25 24 HR Interval Summary Free Text/Dictation No shortness of breath, palpitations or dizziness Exam/Review of Systems Vital Signs Vitals Vital Signs Date Temp Pulse Resp B/P (MAP) Pulse Ox O2 O2 Flow FiO2 Time Delivery Rate 08/31/18 97.8 78 16 101/68 94 Room Air 14:27 (79) Intake and Output 08/30/18 08/30/18 08/31/18 1515:00 23:00 07:00 IntakeIntake Total 240 ml 240 ml BalanceBalance 240 ml 240 ml Exam Constitutional: alert, oriented (No apparent distress) Respiratory: other (Coarse breath sounds bilaterally, no wheezing) Cardiovascular: regular rate and rhythm (S1-S2 heard), systolic murmur Gastrointestinal: soft, non-tender, bowel sounds Extremities: edema (brace lower extremity) Labs Result Diagram: 08/29/18 0725 08/29/18 0556 Medications Medications Current Medications Acetaminophen (Tylenol Tab) 650 mg Q8H PRN PO MILD PAIN(1-3)OR ELEVATED TEMP Last administered on 08/31/18at 12:06; Admin Dose 650 MG; Start 08/27/18 at 01:00 Furosemide (Lasix) 20 mg DAILY PO Last administered on 08/31/18at 09:10; Admin Dose 20 MG; Start 08/28/18 at 09:00 Levothyroxine Sodium (Synthroid) 100 mcg DAILY@06 PO Last administered on 08/31/18at 05:49; Admin Dose 100 MCG; Start 08/28/18 at 06:00 Acetaminophen/ Hydrocodone Bitart ([place] (5/325)) 1 tab Q6H PRN PO MODERATE PAIN LEVEL 4-6 Last administered on 08/31/18at 16:22; Admin Dose 1 TAB; Start 08/27/18 at 19:00 Lisinopril (Zestril) 2.5 mg QHS PO ; Start 08/30/18 at 21:00 Noel Rose DO Aug 31, 2018 18:27
[2018-08-31 19:45] VITALS: BP 108/60; PULSE 75; RESP 13
[2018-08-31 20:00] VITALS: BP 100/60; PULSE 75; RESP 19
[2018-08-31] MEDS: LISINOPRIL 5 MG TAB PO SCH (20:15)
--- NOTE | 2018-08-31 21:05 | PN ---
Date/Time of Note Date/Time of Note DATE: 08/31/18 TIME: 21:05 Assessment/Plan Lines/Catheters IV Catheter Type (from [facility]): Saline Lock Short in Place (from [facility]): No Exam/Review of Systems Vital Signs Vitals Vital Signs Date Temp Pulse Resp B/P (MAP) Pulse Ox O2 O2 Flow FiO2 Time Delivery Rate 08/31/18 98.2 75 13 108/60 93 Room Air 19:45 (76) Intake and Output 08/30/18 08/30/18 08/31/18 1414:59 22:59 06:59 IntakeIntake Total 240 ml 240 ml BalanceBalance 240 ml 240 ml Results Result Diagram: 08/29/18 0725 08/29/18 0556 BERNARD MARIEE DPM Aug 31, 2018 21:05
[2018-09-01 02:00] VITALS: BP 101/59; PULSE 74; RESP 19
[2018-09-01] MEDS: LEVOTHYROXINE 100 MCG TAB PO SCH (06:08)
[2018-09-01 07:40] VITALS: BP 101/50; PULSE 75; RESP 20
[2018-09-01] MEDS: FUROSEMIDE 20 MG TAB PO SCH (09:00)
[2018-09-01 09:04] VITALS: BP 98/65
[2018-09-01] MEDS: ACETAMINOPHEN 325 MG TAB PO PRN (14:01)
[2018-09-01 14:35] VITALS: BP 101/56; PULSE 83; RESP 16
--- NOTE | 2018-09-01 16:48 | CONS ---
Assessment/Plan Cardiology NYHA: II Heart Failure Type: Chronic Heart Failure Type: Systolic Assessment/Plan Hospital Course (Demo Recall) Mechanical fall with lower extremity fracture Chronic systolic congestive heart failure Cardiomyopathy with left ventricular ejection fraction 25% Mitral valve regurgitation Acute kidney injury, improved -Continue MADDY inhibitor as renal function and blood pressure tolerates. -Lasix as renal function blood pressure tolerates -If blood pressure remains stable, consider initiation of beta-manuel Consultation Date/Type/Reason Admit Date/Time Aug 27, 2018 at 18:45 Initial Consult Date 08/30/18 Type of Consult Cardiology Requesting Provider: LAYLA GIBSON MD Date/Time of Note DATE: 09/01/18 TIME: 16:47 24 HR Interval Summary Free Text/Dictation Denies current shortness of breath, chest pain or palpitations Exam/Review of Systems Vital Signs Vitals Vital Signs Date Temp Pulse Resp B/P (MAP) Pulse Ox O2 O2 Flow FiO2 Time Delivery Rate 09/01/18 97.9 83 16 101/56 94 Room Air 14:35 (71) Intake and Output 08/31/18 08/31/18 09/01/18 1515:00 23:00 07:00 IntakeIntake Total 400 ml BalanceBalance 400 ml Exam Constitutional: alert, oriented (No apparent distress) Respiratory: other (Coarse breath sounds bilaterally, no wheezing) Cardiovascular: regular rate and rhythm (S1-S2 heard), systolic murmur Gastrointestinal: soft, non-tender, bowel sounds Extremities: edema Labs Result Diagram: 08/29/18 0725 08/29/18 0556 Results 24hrs Laboratory Tests Test 08/31/18 19:59 Bedside Glucose 119 Medications Medications Current Medications Acetaminophen (Tylenol Tab) 650 mg Q8H PRN PO MILD PAIN(1-3)OR ELEVATED TEMP Last administered on 09/01/18at 14:01; Admin Dose 650 MG; Start 08/27/18 at 01:00 Furosemide (Lasix) 20 mg DAILY PO Last administered on 08/31/18at 09:10; Admin Dose 20 MG; Start 08/28/18 at 09:00 Levothyroxine Sodium (Synthroid) 100 mcg DAILY@06 PO Last administered on 09/01/18at 06:08; Admin Dose 100 MCG; Start 08/28/18 at 06:00 Acetaminophen/ Hydrocodone Bitart ([place] (5/325)) 1 tab Q6H PRN PO MODERATE PAIN LEVEL 4-6 Last administered on 08/31/18at 16:22; Admin Dose 1 TAB; Start 08/27/18 at 19:00 Lisinopril (Zestril) 2.5 mg QHS PO ; Start 08/30/18 at 21:00 Noel Rose DO Sep 01, 2018 16:48
[2018-09-01 20:17] VITALS: BP 109/51; PULSE 85; RESP 18
[2018-09-01] MEDS: LISINOPRIL 5 MG TAB PO SCH (20:41)
[2018-09-02 01:52] VITALS: BP 110/59; PULSE 79; RESP 18
[2018-09-02] MEDS: LEVOTHYROXINE 100 MCG TAB PO SCH (05:08)
[2018-09-02 08:04] VITALS: BP 105/51; PULSE 55; RESP 18
[2018-09-02] MEDS: FUROSEMIDE 20 MG TAB PO SCH (08:22)
[2018-09-02] MEDS: ACETAMINOPHEN 325 MG TAB PO PRN (09:10)
--- NOTE | 2018-09-02 12:33 | PN ---
Date/Time of Note Date/Time of Note DATE: 09/02/18 TIME: 12:30 Assessment/Plan VTE Prophylaxis Risk score (from Ns)>0 risk: 3 SCD applied (from Ns): No SCD contraindicated: bilateral LE trauma Pharmacological prophylaxis: NA/contraindicated Pharm contraindication: other (tibial fracture, fragilke skin on the legs) Lines/Catheters IV Catheter Type (from Nrs): Peripheral IV Urinary Cath still in place: No Assessment/Plan Result Diagram: 08/29/18 0725 08/29/18 0556 Subjective 24 Hr Interval Summary Free Text/Dictation awaiting authorization for aru transfer as far as i can detrermine she remains nwb rt leg and very weak with transfers, ok w bed excercises, no sob at rest bp is ok lungs sound clear, no edema, 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 Musculoskeletal: bone/joint pain Exam/Review of Systems Exam Vitals Vital Signs Date Temp Pulse Resp B/P (MAP) Pulse Ox O2 O2 Flow FiO2 Time Delivery Rate 09/02/18 98.0 55 18 105/51 96 Room Air 08:04 (69) Intake and Output 09/01/18 09/01/18 09/02/18 1515:00 23:00 07:00 IntakeIntake Total 480 ml 240 ml BalanceBalance 480 ml 240 ml Medications Medication Current Medications Acetaminophen (Tylenol Tab) 650 mg Q8H PRN PO MILD PAIN(1-3)OR ELEVATED TEMP Last administered on 09/02/18at 09:10; Admin Dose 650 MG; Start 08/27/18 at 01:00 Furosemide (Lasix) 20 mg DAILY PO Last administered on 08/31/18at 09:10; Admin Dose 20 MG; Start 08/28/18 at 09:00 Levothyroxine Sodium (Synthroid) 100 mcg DAILY@06 PO Last administered on 09/02/18at 05:08; Admin Dose 100 MCG; Start 08/28/18 at 06:00 Acetaminophen/ Hydrocodone Bitart ([place] (5/325)) 1 tab Q6H PRN PO MODERATE PAIN LEVEL 4-6 Last administered on 08/31/18at 16:22; Admin Dose 1 TAB; Start 08/27/18 at 19:00 Lisinopril (Zestril) 2.5 mg QHS PO ; Start 08/30/18 at 21:00 MARYCRUZ PRASAD MD Sep 02, 2018 12:33
[2018-09-02 14:00] VITALS: BP 122/60; PULSE 74; RESP 18
[2018-09-02 19:46] VITALS: BP 119/59; PULSE 77; RESP 20
[2018-09-02] MEDS: LISINOPRIL 5 MG TAB PO SCH (21:07)
--- NOTE | 2018-09-02 23:49 | PN ---
Date/Time of Note Date/Time of Note DATE: 09/02/18 TIME: 23:49 Assessment/Plan Lines/Catheters IV Catheter Type (from [facility]): Saline Lock Short in Place (from [facility]): No Exam/Review of Systems Vital Signs Vitals Vital Signs Date Temp Pulse Resp B/P (MAP) Pulse Ox O2 O2 Flow FiO2 Time Delivery Rate 09/02/18 98.1 77 20 119/59 95 19:46 (79) 09/02/18 Room Air 14:00 Intake and Output 09/01/18 09/01/18 09/02/18 1515:00 23:00 07:00 IntakeIntake Total 480 ml 240 ml BalanceBalance 480 ml 240 ml Results Result Diagram: 08/29/18 0725 08/29/18 0556 BERNARD MARIEE DPM Sep 02, 2018 23:49
[2018-09-03 01:27] VITALS: BP 123/64; PULSE 83; RESP 20
[2018-09-03] MEDS: LEVOTHYROXINE 100 MCG TAB PO SCH (06:32)
[2018-09-03 08:00] VITALS: BP 106/57; PULSE 88
--- NOTE | 2018-09-03 08:56 | PN ---
Date/Time of Note Date/Time of Note DATE: 09/03/18 TIME: 08:53 Assessment/Plan VTE Prophylaxis Risk score (from [facility])>0 risk: 5 SCD applied (from [facility]): No SCD contraindicated: bilateral LE trauma Pharmacological prophylaxis: NA/contraindicated Pharm contraindication: other (fracture) Lines/Catheters IV Catheter Type (from [facility]): Saline Lock Urinary Cath still in place: No Assessment/Plan Result Diagram: 09/03/1852709/03/18527 Results 24hrs Laboratory Tests Test 09/03/18 05:28 White Blood Count 5.9 Red Blood Count 3.77 L Hemoglobin 12.2 Hematocrit 39.5 Mean Corpuscular Volume 104.8 H Mean Corpuscular Hemoglobin 32.4 Mean Corpuscular Hemoglobin Concent 30.9 L Red Cell Distribution Width 15.2 H Platelet Count 302 # Mean Platelet Volume 9.0 Immature Granulocytes % 0.300 Neutrophils % 74.7 Lymphocytes % 17.7 Monocytes % 5.5 Eosinophils % 1.5 Basophils % 0.3 Nucleated Red Blood Cells % 0.0 Immature Granulocytes # 0.020 Neutrophils # 4.4 Lymphocytes # 1.0 Monocytes # 0.3 Eosinophils # 0.1 Basophils # 0.0 Nucleated Red Blood Cells # 0.0 Sodium Level 141 Potassium Level 4.1 Chloride Level 104 Carbon Dioxide Level 34 H Anion Gap 3 L Blood Urea Nitrogen 26 H Creatinine 0.77 Est Glomerular Filtrat Rate mL/min Glucose Level 99 Calcium Level 8.9 Total Bilirubin 0.2 Direct Bilirubin 0.00 Indirect Bilirubin 0.2 Aspartate Amino Transf (AST/SGOT) 21 Alanine Aminotransferase (ALT/SGPT) 19 Alkaline Phosphatase 98 Total Protein 5.8 L Albumin 2.7 L Globulin 3.10 Albumin/Globulin Ratio 0.87 Subjective 24 Hr Interval Summary Free Text/Dictation sitting up in bed, alert. eating without difficulty. vs ok cxr without infiltrate or chf. labs ok, creat back to normal' lungs clear, hr ok, no edema waiting clearance for transfer william dav[facility] pt, brace on knee says some constipation. Gastrointestinal: constipation Musculoskeletal: bone/joint pain Exam/Review of Systems Exam Vitals Vital Signs Date Temp Pulse Resp B/P (MAP) Pulse Ox O2 O2 Flow FiO2 Time Delivery Rate 09/03/18 98.0 83 20 123/64 95 01:27 (83) 09/02/18 Room Air 14:00 Intake and Output 09/02/18 09/02/18 09/03/18 1515:00 23:00 07:00 IntakeIntake Total 780 ml 120 ml 480 ml BalanceBalance 780 ml 120 ml 480 ml Results Results 24hrs Laboratory Tests Test 09/03/18 05:28 White Blood Count 5.9 Red Blood Count 3.77 L Hemoglobin 12.2 Hematocrit 39.5 Mean Corpuscular Volume 104.8 H Mean Corpuscular Hemoglobin 32.4 Mean Corpuscular Hemoglobin Concent 30.9 L Red Cell Distribution Width 15.2 H Platelet Count 302 # Mean Platelet Volume 9.0 Immature Granulocytes % 0.300 Neutrophils % 74.7 Lymphocytes % 17.7 Monocytes % 5.5 Eosinophils % 1.5 Basophils % 0.3 Nucleated Red Blood Cells % 0.0 Immature Granulocytes # 0.020 Neutrophils # 4.4 Lymphocytes # 1.0 Monocytes # 0.3 Eosinophils # 0.1 Basophils # 0.0 Nucleated Red Blood Cells # 0.0 Sodium Level 141 Potassium Level 4.1 Chloride Level 104 Carbon Dioxide Level 34 H Anion Gap 3 L Blood Urea Nitrogen 26 H Creatinine 0.77 Est Glomerular Filtrat Rate mL/min Glucose Level 99 Calcium Level 8.9 Total Bilirubin 0.2 Direct Bilirubin 0.00 Indirect Bilirubin 0.2 Aspartate Amino Transf (AST/SGOT) 21 Alanine Aminotransferase (ALT/SGPT) 19 Alkaline Phosphatase 98 Total Protein 5.8 L Albumin 2.7 L Globulin 3.10 Albumin/Globulin Ratio 0.87 Medications Medication Current Medications Acetaminophen (Tylenol Tab) 650 mg Q8H PRN PO MILD PAIN(1-3)OR ELEVATED TEMP Last administered on 09/02/18at 09:10; Admin Dose 650 MG; Start 08/27/18 at 01:00 Furosemide (Lasix) 20 mg DAILY PO Last administered on 08/31/18at 09:10; Admin Dose 20 MG; Start 08/28/18 at 09:00 Levothyroxine Sodium (Synthroid) 100 mcg DAILY@06 PO Last administered on 09/03/18at 06:32; Admin Dose 100 MCG; Start 08/28/18 at 06:00 Acetaminophen/ Hydrocodone Bitart ([place] (5/325)) 1 tab Q6H PRN PO MODERATE PAIN LEVEL 4-6 Last administered on 08/31/18at 16:22; Admin Dose 1 TAB; Start 08/27/18 at 19:00 Lisinopril (Zestril) 2.5 mg QHS PO Last administered on 09/02/18at 21:07; Admin Dose 2.5 MG; Start 08/30/18 at 21:00 MARYCRUZ PRASAD MD Sep 03, 2018 08:56
[2018-09-03] MEDS ORDERED: LACTULOSE 30ML CUP PO ONE (09:00)
[2018-09-03] MEDS: FUROSEMIDE 20 MG TAB PO SCH (09:17)
[2018-09-03] MEDS: ACETAMINOPHEN 325 MG TAB PO PRN (10:50)
[2018-09-03 14:00] VITALS: BP_SYST 91; PULSE 68; RESP 18
--- NOTE | 2018-09-03 15:48 | CONS ---
Assessment/Plan Cardiology NYHA: II Heart Failure Type: Chronic Heart Failure Type: Systolic Assessment/Plan Hospital Course (Demo Recall) Mechanical fall with lower extremity fracture Chronic systolic congestive heart failure Cardiomyopathy with left ventricular ejection fraction 25% Mitral valve regurgitation Acute kidney injury, improved -Continue MADDY inhibitor as renal function and blood pressure tolerates. -Lasix as renal function blood pressure tolerates -Patient with occasional bradycardia seen on vital signs, would hold off on beta-manuel at the current time. -No new cardiac orders at the current time Consultation Date/Type/Reason Admit Date/Time Aug 27, 2018 at 18:45 Initial Consult Date 08/30/18 Type of Consult Cardiology Requesting Provider: LAYLA GIBSON MD Date/Time of Note DATE: 09/03/18 TIME: 15:47 24 HR Interval Summary Free Text/Dictation Denies chest pain, shortness of breath is better Exam/Review of Systems Vital Signs Vitals Vital Signs Date Temp Pulse Resp B/P (MAP) Pulse Ox O2 O2 Flow FiO2 Time Delivery Rate 09/03/18 98.0 68 18 91/ 94 Room Air 14:00 Intake and Output 09/02/18 09/02/18 09/03/18 1515:00 23:00 07:00 IntakeIntake Total 780 ml 120 ml 480 ml BalanceBalance 780 ml 120 ml 480 ml Exam Constitutional: alert (No apparent distress, no dyspnea with speaking) Head: normocephalic Respiratory: other (Coarse breath sounds bilaterally, no wheezing) Cardiovascular: regular rate and rhythm (S1-S2 heard) Gastrointestinal: soft, non-tender, bowel sounds Extremities: other (Brace right lower extremity) Labs Result Diagram: 09/03/1828 09/03/1828 Results 24hrs Laboratory Tests Test 09/03/18 05:28 White Blood Count 5.9 Red Blood Count 3.77 L Hemoglobin 12.2 Hematocrit 39.5 Mean Corpuscular Volume 104.8 H Mean Corpuscular Hemoglobin 32.4 Mean Corpuscular Hemoglobin Concent 30.9 L Red Cell Distribution Width 15.2 H Platelet Count 302 # Mean Platelet Volume 9.0 Immature Granulocytes % 0.300 Neutrophils % 74.7 Lymphocytes % 17.7 Monocytes % 5.5 Eosinophils % 1.5 Basophils % 0.3 Nucleated Red Blood Cells % 0.0 Immature Granulocytes # 0.020 Neutrophils # 4.4 Lymphocytes # 1.0 Monocytes # 0.3 Eosinophils # 0.1 Basophils # 0.0 Nucleated Red Blood Cells # 0.0 Sodium Level 141 Potassium Level 4.1 Chloride Level 104 Carbon Dioxide Level 34 H Anion Gap 3 L Blood Urea Nitrogen 26 H Creatinine 0.77 Est Glomerular Filtrat Rate mL/min Glucose Level 99 Calcium Level 8.9 Total Bilirubin 0.2 Direct Bilirubin 0.00 Indirect Bilirubin 0.2 Aspartate Amino Transf (AST/SGOT) 21 Alanine Aminotransferase (ALT/SGPT) 19 Alkaline Phosphatase 98 Total Protein 5.8 L Albumin 2.7 L Globulin 3.10 Albumin/Globulin Ratio 0.87 Medications Medications Current Medications Acetaminophen (Tylenol Tab) 650 mg Q8H PRN PO MILD PAIN(1-3)OR ELEVATED TEMP Last administered on 09/03/18 10:50; Admin Dose 650 MG; Start 08/27/18 at 01:00 Furosemide (Lasix) 20 mg DAILY PO Last administered on 09/03/18 09:17; Admin Dose 20 MG; Start 08/28/18 at 09:00 Levothyroxine Sodium (Synthroid) 100 mcg DAILY@06 PO Last administered on 09/03/18 06:32; Admin Dose 100 MCG; Start 08/28/18 at 06:00 Acetaminophen/ Hydrocodone Bitart ([employer] (5/325)) 1 tab Q6H PRN PO MODERATE ASAD N LEVEL 4-6 Last administered on 08/31/18 16:22; Admin Dose 1 TAB; Start 08/27/18 at 19:00 Lisinopril (Zestril) 2.5 mg QHS PO Last administered on 09/02/18 21:07; Admin Dose 2.5 MG; Start 08/30/18 at 21:00 Noel Rose DO Sep 03, 2018 15:48
[2018-09-03 20:00] VITALS: BP 93/41; PULSE 73; RESP 19
[2018-09-03] MEDS: LISINOPRIL 5 MG TAB PO SCH (20:12)
[2018-09-04 02:00] VITALS: BP 95/44; PULSE 75; RESP 18
[2018-09-04] MEDS: LEVOTHYROXINE 100 MCG TAB PO SCH (05:11)
[2018-09-04 07:51] VITALS: BP 96/50; PULSE 63; RESP 18
[2018-09-04] MEDS: FUROSEMIDE 20 MG TAB PO SCH (09:00)
--- NOTE | 2018-09-04 09:13 | PN ---
Date/Time of Note Date/Time of Note DATE: 09/04/18 TIME: 09:09 Assessment/Plan VTE Prophylaxis Risk score (from Nsg)>0 risk: 10 SCD applied (from Nsg): No SCD contraindicated: bilateral LE trauma Pharmacological prophylaxis: NA/contraindicated Pharm contraindication: other (fx tibia) Lines/Catheters IV Catheter Type (from Nrsg): Saline Lock Urinary Cath still in place: No Assessment/Plan Result Diagram: 09/03/1852709/03/18527 Subjective 24 Hr Interval Summary Free Text/Dictation post tibial plateau fx rt leg, nwb status with brace for now. not eligible for aru, looking for alternate placement hyhpothyroid, on replacement cardiomyopathy, low ef, no overt chf, on kemal, lasix, renal fx back to normal hard of hearing, alert, pleasant, tho can be obstiante lungs clear, abd soft, no edema will transfer to snf when placement found and family on board Musculoskeletal: bone/joint pain Exam/Review of Systems Exam Vitals Vital Signs Date Temp Pulse Resp B/P (MAP) Pulse Ox O2 O2 Flow FiO2 Time Delivery Rate 09/04/18 97.9 63 18 96/50 (65) 93 07:51 09/03/18 Room Air 14:00 Intake and Output 09/03/18 09/03/18 09/04/18 1515:00 23:00 07:00 IntakeIntake Total 240 ml BalanceBalance 240 ml Medications Medication Current Medications Acetaminophen (Tylenol Tab) 650 mg Q8H PRN PO MILD PAIN(1-3)OR ELEVATED TEMP Last administered on 09/03/18at 10:50; Admin Dose 650 MG; Start 08/27/18 at 01:00 Furosemide (Lasix) 20 mg DAILY PO Last administered on 09/03/18at 09:17; Admin Dose 20 MG; Start 08/28/18 at 09:00 Levothyroxine Sodium (Synthroid) 100 mcg DAILY@06 PO Last administered on 09/04/18at 05:11; Admin Dose 100 MCG; Start 08/28/18 at 06:00 Acetaminophen/ Hydrocodone Bitart ([place] (5/325)) 1 tab Q6H PRN PO MODERATE PAIN LEVEL 4-6 Last administered on 08/31/18at 16:22; Admin Dose 1 TAB; Start 08/27/18 at 19:00 Lisinopril (Zestril) 2.5 mg QHS PO Last administered on 09/02/18at 21:07; Admin Dose 2.5 MG; Start 08/30/18 at 21:00 MARYCRUZ PRASAD MD Sep 04, 2018 09:13
--- NOTE | 2018-09-04 11:59 | CONS ---
Assessment/Plan Cardiology NYHA: II Heart Failure Type: Chronic Heart Failure Type: Systolic Assessment/Plan Hospital Course (Demo Recall) Mechanical fall with lower extremity fracture Chronic systolic congestive heart failure Cardiomyopathy with left ventricular ejection fraction 25% Mitral valve regurgitation Acute kidney injury, improved -Continue MADDY inhibitor as renal function and blood pressure tolerates. -Lasix as renal function blood pressure tolerates -Patient with occasional bradycardia seen on vital signs, would hold off on beta-manuel at the current time. Consultation Date/Type/Reason Admit Date/Time Aug 27, 2018 at 18:45 Initial Consult Date 08/30/18 Type of Consult Cardiology Requesting Provider: LAYLA GIBSON MD Date/Time of Note DATE: 09/04/18 TIME: 11:58 24 HR Interval Summary Free Text/Dictation Denies chest pain, shortness of breath or palpitations Exam/Review of Systems Vital Signs Vitals Vital Signs Date Temp Pulse Resp B/P (MAP) Pulse Ox O2 O2 Flow FiO2 Time Delivery Rate 09/04/18 97.9 63 18 96/50 (65) 93 07:51 09/03/18 Room Air 14:00 Intake and Output 09/03/18 09/03/18 09/04/18 1515:00 23:00 07:00 IntakeIntake Total 240 ml BalanceBalance 240 ml Exam Constitutional: alert, oriented (No apparent distress, family bedside) Respiratory: other (Coarse breath sounds bilaterally, no wheezing) Cardiovascular: regular rate and rhythm, systolic murmur Gastrointestinal: soft, non-tender, bowel sounds Extremities: edema (Trace left lower extremity) Labs Result Diagram: 09/03/1828 09/03/18527 Medications Medications Current Medications Acetaminophen (Tylenol Tab) 650 mg Q8H PRN PO MILD PAIN(1-3)OR ELEVATED TEMP Last administered on 09/03/18at 10:50; Admin Dose 650 MG; Start 08/27/18 at 01:00 Furosemide (Lasix) 20 mg DAILY PO Last administered on 09/03/18at 09:17; Admin D ose 20 MG; Start 08/28/18 at 09:00 Levothyroxine Sodium (Synthroid) 100 mcg DAILY@06 PO Last administered on 09/04/18at 05:11; Admin Dose 100 MCG; Start 08/28/18 at 06:00 Acetaminophen/ Hydrocodone Bitart ([place] (5/325)) 1 tab Q6H PRN PO MODERATE PAIN LEVEL 4-6 Last administered on 08/31/18at 16:22; Admin Dose 1 TAB; Start 08/27/18 at 19:00 Lisinopril (Zestril) 2.5 mg QHS PO Last administered on 09/02/18at 21:07; Admin Dose 2.5 MG; Start 08/30/18 at 21:00 Noel Rose DO Sep 04, 2018 11:59
[2018-09-04 14:34] VITALS: BP 112/57; PULSE 76; RESP 17
[2018-09-04 19:41] VITALS: BP 112/55; PULSE 89; RESP 20
[2018-09-04] MEDS: LISINOPRIL 5 MG TAB PO SCH (21:09)
[2018-09-05 01:44] VITALS: BP 104/52; PULSE 70; RESP 20
[2018-09-05] MEDS: LEVOTHYROXINE 100 MCG TAB PO SCH (05:56)
[2018-09-05 07:25] VITALS: BP 127/59; PULSE 87; RESP 20
[2018-09-05] MEDS: FUROSEMIDE 20 MG TAB PO SCH (08:40)
[2018-09-05] MEDS ORDERED: LEVALBUTEROL (NEB) 0.31 MG/3 ML AMP HHN STA (09:16)
[2018-09-05] MEDS ORDERED: LEVALBUTEROL (NEB) 0.63 MG/3 ML AMP HHN STA (09:21)
[2018-09-05] MEDS: FUROSEMIDE 20 MG INJ IV SCH (14:00)
[2018-09-05 14:13] VITALS: BP 88/48; PULSE 75; RESP 20
[2018-09-05] MEDS: ALBUTEROL/IPRATROPIUM (NEB) 3 ML AMP HHN SCH ×2 (17:01→20:49)
--- NOTE | 2018-09-05 17:36 | PN ---
Date/Time of Note Date/Time of Note DATE: 09/05/18 TIME: 17:23 Patient seen at 13:45 Assessment/Plan VTE Prophylaxis Risk score (from [facility])>0 risk: 9 SCD applied (from [facility]): No SCD contraindicated: other (lower leg trauma) Pharmacological prophylaxis: other Pharm contraindication: bleeding, other Lines/Catheters IV Catheter Type (from [facility]): Saline Lock Urinary Cath still in place: No Assessment/Plan Problems: (1) SOB (shortness of breath) Status: Acute Comment: Probable cause is CHF with fluid retention since patient did not receive furosemide dose yesterday. Concern is for PE given patient's risk factors after a tibial plateau fracture with immobility and non weight bearing status. If symptoms worsen with obtain LE Doppler and CT angiogram. Have stared patient on breathing treatments prn SOB and O2 by NC to maintain saturations above 90% (2) Tibial plateau fracture, right Status: Acute Comment: Per PT and Ortho service Qualifiers: Encounter type: initial encounter Fracture type: closed Qualified Codes: S82.141A - Displaced bicondylar fracture of right tibia, initial encounter for closed fracture (3) SIMÓN (acute kidney injury) Status: Resolved (4) Acute CHF Status: Acute Comment: Continue medication regimen as per cardiology Qualifiers: Heart failure type: unspecified Qualified Codes: I50.9 - Heart failure, unspecified Result Diagram: 09/03/1828 09/03/18527 Subjective 24 Hr Interval Summary Free Text/Dictation Per nursing staff patient sob this morning with some decrease in O2 saturation. Breathing treatment and oxygen improved patient's symptoms to some degree. Yesterday patient did not receive lasix because of a low BP. Today CXR showing some effusion. Exam/Review of Systems Exam Vitals Vital Signs Date Temp Pulse Resp B/P (MAP) Pulse Ox O2 O2 Flow FiO2 Time Delivery Rate 09/05/18 2.0 17:05 09/05/18 72 25 91 21 17:02 09/05/18 98.2 88/48 (61) Nasal 14:13 Cannula Intake and Output 09/04/18 09/04/18 09/05/18 1414:59 22:59 06:59 IntakeIntake Total 720 ml 240 ml BalanceBalance 720 ml 240 ml Constitutional: alert, other (hard of hearing) Head: normocephalic Neck: supple Respiratory: diminished breath sounds Cardiovascular: regular rate and rhythm Gastrointestinal: soft Extremities: normal pulses Imaging Imaging CXR results reviewed Medications Medication Current Medications Acetaminophen (Tylenol Tab) 650 mg Q8H PRN PO MILD PAIN(1-3)OR ELEVATED TEMP Last administered on 09/03/18 10:50; Admin Dose 650 MG; Start 08/27/18 at 01:00 Levothyroxine Sodium (Synthroid) 100 mcg DAILY@06 PO Last administered on 09/05/18 05:56; Admin Dose 100 MCG; Start 08/28/18 at 06:00 Acetaminophen/ Hydrocodone Bitart ([place] (5/325)) 1 tab Q6H PRN PO MODERATE PAIN LEVEL 4-6 Last administered on 08/31/18 16:22; Admin Dose 1 TAB; Start 08/27/18 at 19:00 Lisinopril (Zestril) 2.5 mg QHS PO Last administered on 09/04/18 21:09; Admin Dose 2.5 MG; Start 08/30/18 at 21:00 Furosemide (Lasix) 20 mg DAILY IV ; Start 09/05/18 at 14:00 Albuterol/ Ipratropium (Duoneb) 3 ml Q4H RESP THERAPY HHN Last administered on 09/05/18 17:01; Admin Dose 3 ML; Start 09/05/18 at 17:00 GILBERTO NÚÑEZ MD Sep 05, 2018 17:34
[2018-09-05] MEDS: ACETAMINOPHEN 325 MG TAB PO PRN (19:57)
[2018-09-05 20:00] VITALS: BP 96/48; PULSE 69; RESP 19
[2018-09-05] MEDS: LISINOPRIL 5 MG TAB PO SCH (20:56)
[2018-09-06] MEDS: ALBUTEROL/IPRATROPIUM (NEB) 3 ML AMP HHN SCH ×6 (00:37→20:34)
[2018-09-06 02:00] VITALS: BP 108/59; PULSE 77; RESP 19
[2018-09-06] MEDS: ACETAMINOPHEN 325 MG TAB PO PRN (06:23)
[2018-09-06] MEDS: LEVOTHYROXINE 100 MCG TAB PO SCH (06:23)
[2018-09-06 07:13] VITALS: BP 102/51; PULSE 73; RESP 18
[2018-09-06] MEDS: FUROSEMIDE 20 MG INJ IV SCH (07:48)
--- NOTE | 2018-09-06 12:54 | PN ---
Date/Time of Note Date/Time of Note DATE: 09/06/18 TIME: 12:50 Assessment/Plan VTE Prophylaxis Risk score (from Ns)>0 risk: 3 SCD applied (from Ns): No SCD contraindicated: other (right tibial plateau fracture) Pharmacological prophylaxis: other Pharm contraindication: other Lines/Catheters IV C[facility]ter Type (from [facility]): Peripheral IV Urinary Cath still in place: No Assessment/Plan Problems: (1) SOB (shortness of breath) Status: Acute Comment: Symptomatic improvement after extra dose of furosemide yesterday and initiation of breathing treatments. Will continue to monitor.. (2) SIMÓN (acute kidney injury) Status: Resolved Comment: Creatinine back to baseline (3) Tibial plateau fracture, right Status: Acute Comment: Non weight bearing. Working with PT. Would benefit from inpatient rehab ([facility]) Qualifiers: Encounter type: initial encounter Fracture type: closed Qualified Codes: S82.141A - Displaced bicondylar fracture of right tibia, initial encounter for closed fracture (4) Acute CHF Status: Acute Comment: As per cardiology Qualifiers: Heart failure type: unspecified Qualified Codes: I50.9 - Heart failure, unspecified Result Diagram: 09/03/1828 09/03/1828 Subjective 24 Hr Interval Summary Free Text/Dictation Sister at bedside. Patient less SOB today. Exam/Review of Systems Exam Vitals Vital Signs Date Temp Pulse Resp B/P (MAP) Pulse Ox O2 O2 Flow FiO2 Time Delivery Rate 09/06/18 74 20 96 Nasal 2.0 09:12 Cannula 09/06/18 97.4 102/51 07:13 (68) 09/05/18 21 17:02 Intake and Output 09/05/18 09/05/18 09/06/18 1515:00 23:00 07:00 IntakeIntake Total 440 ml 200 ml BalanceBalance 440 ml 200 ml Constitutional: alert, oriented, other (hard of hearing) Head: normocephalic Neck: supple Respiratory: clear to auscultation Cardiovascular: regular rate and rhythm Extremities: normal pulses Medications Medication Current Medications Acetaminophen (Tylenol Tab) 650 mg Q8H PRN PO MILD PAIN(1-3)OR ELEVATED TEMP Last administered on 09/06/18at 06:23; Admin Dose 650 MG; Start 08/27/18 at 01:00 Levothyroxine Sodium (Synthroid) 100 mcg DAILY@06 PO Last administered on 09/06/18 06:23; Admin Dose 100 MCG; Start 08/28/18 at 06:00 Acetaminophen/ Hydrocodone Bitart ([place] (5/325)) 1 tab Q6H PRN PO MODERATE PAIN LEVEL 4-6 Last administered on 08/31/18 16:22; Admin Dose 1 TAB; Start 08/27/18 at 19:00 Lisinopril (Zestril) 2.5 mg QHS PO Last administered on 09/04/18 21:09; Admin Dose 2.5 MG; Start 08/30/18 at 21:00 Furosemide (Lasix) 20 mg DAILY IV Last administered on 09/06/18 07:48; Admin Dose 20 MG; Start 09/05/18 at 14:00 Albuterol/ Ipratropium (Duoneb) 3 ml Q4H RESP THERAPY HHN Last administered on 09/06/18 09:11; Admin Dose 3 ML; Start 09/05/18 at 17:00 GILBERTO NÚÑEZ MD Sep 06, 2018 12:54
[2018-09-06 14:46] VITALS: BP 116/46; PULSE 73; RESP 18
[2018-09-06] MEDS: LISINOPRIL 5 MG TAB PO SCH (20:18)
[2018-09-07] MEDS: ALBUTEROL/IPRATROPIUM (NEB) 3 ML AMP HHN SCH ×4 (00:39→12:50)
[2018-09-07 01:45] VITALS: BP 113/61; PULSE 89; RESP 16
[2018-09-07] MEDS: LEVOTHYROXINE 100 MCG TAB PO SCH (06:11)
[2018-09-07 07:53] VITALS: BP 103/54; PULSE 79; RESP 20
[2018-09-07] MEDS ORDERED: FUROSEMIDE 40 MG TAB PO SCH (09:00)
--- NOTE | 2018-09-07 09:06 | PN ---
Date/Time of Note Date/Time of Note DATE: 09/07/18 TIME: 09:02 Assessment/Plan VTE Prophylaxis Risk score (from Ns)>0 risk: 13 SCD applied (from Ns): No SCD contraindicated: bilateral LE trauma Pharmacological prophylaxis: NA/contraindicated Pharm contraindication: other (tibial fx) Lines/Catheters IV C[facility]ter Type (from [facility] Peripheral IV Urinary Cath still in place: No Assessment/Plan Result Diagram: 09/03/1852709/03/18527 Subjective 24 Hr Interval Summary Free Text/Dictation right tibial plateau fx, stable, non wb, getting up with pt some aob, ddid not get dlasix re bp sl low, i would give despite bp, is getting rt therapy now, sl wheeze, no edema, sats ok usp care...placement in progress repeat labs tomorrow Respiratory: shortness of breath Musculoskeletal: bone/joint pain Exam/Review of Systems Exam Vitals Vital Signs Date Temp Pulse Resp B/P (MAP) Pulse Ox O2 O2 Flow FiO2 Time Delivery Rate 09/07/18 98.3 79 20 103/54 98 Nasal 07:53 (70) Cannula 09/07/18 2.0 04:16 09/05/18 21 17:02 Intake and Output 09/06/18 09/06/18 09/07/18 1515:00 23:00 07:00 IntakeIntake Total 300 ml 240 ml BalanceBalance 300 ml 240 ml Medications Medication Current Medications Acetaminophen (Tylenol Tab) 650 mg Q8H PRN PO MILD PAIN(1-3)OR ELEVATED TEMP Last administered on 09/06/18at 06:23; Admin Dose 650 MG; Start 08/27/18 at 01:00 Levothyroxine Sodium (Synthroid) 100 mcg DAILY@06 PO Last administered on 09/07/18at 06:11; Admin Dose 100 MCG; Start 08/28/18 at 06:00 Acetaminophen/ Hydrocodone Bitart ([place] (5/325)) 1 tab Q6H PRN PO MODERATE PAIN LEVEL 4-6 Last administered on 08/31/18at 16:22; Admin Dose 1 TAB; Start 08/27/18 at 19:00 Lisinopril (Zestril) 2.5 mg QHS PO Last administered on 09/06/18at 20:18; Admin Dose 2.5 MG; Start 08/30/18 at 21:00 Albuterol/ Ipratropium (Duoneb) 3 ml Q4H RESP THERAPY HHN Last administered on 09/07/18at 08:58; Admin Dose 3 ML; Start 09/05/18 at 17:00 Furosemide (Lasix) 40 mg DAILY PO ; Start 09/07/18 at 09:00; Status UNMARYCRUZ AVALOS MD Sep 07, 2018 09:06
[2018-09-07] MEDS ORDERED: LISI-313 PO (13:52)
--- NOTE | 2018-09-07 13:53 | PDOCDIS ---
Discharge Instructions DIAGNOSIS Discharge Diagnosis rt tikbial plateau fx chf hypothyroid CONDITION [id number] Patient Condition: [id number] Fair HOME CARE INSTRUCTIONS: [id number] Diet Instructions: [id number] Renal ACTIVITY: [id number] Activity Restrictions: Wmprf2i No Restrictions [id number] Bathing Restrictions: [id number] Shower MARYCRUZ PRASAD MD Sep 07, 2018 13:53
[2018-09-07 14:00] VITALS: BP 109/47; PULSE 60; RESP 18
--- NOTE | 2018-09-07 15:28 | DS ---
DATE OF ADMISSION: 08/27/2018 DATE OF DISCHARGE: 09/07/2018 CHIEF COMPLAINT: Knee pain. FINAL DIAGNOSES: 1. Acute tibial plateau fracture, right knee. 2. 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 3. Hypothyroidism. 4. Hard of hearing. DISCUSSION: This is an 88-year-old woman who is seen only rarely in the office and is not good about understanding her disease and diagnoses. The patient mostly takes her thyroid medication, but has n oted increasing swelling in her leg and was taking some Lasix. She sustained an injury to her right knee and was found to have a tibial plateau fracture and was admitted to the hospital. She was seen by the orthopedic physician who felt that she should be in a hinged cast that could be locked and she should be in a nonweightbearing situation for at least the next 6 weeks. She was also found mildly short of breath with some mild interstitial findings on chest x-ray and some peripheral edema. She w as seen by Dr. Rose and was found to have low ejection fraction and was placed on a low dose of MADDY and her Lasix was continued. The patient really is unable to assist very much with physical therapy because of pain and generalized weakness. She intermittently gets short of breath and has been requ iring inhalation therapy as well. She was treated with IV Lasix, but the nurses were holding it for a low blood pressure. She was changed to oral Lasix. She will continue on lisinopril. The patient will be discharged to [facility] for ongoing bed rest with progressive ambulation as the fracture he als. Her medications will be continued and I will follow her there. Dictated By: MARYCRUZ PRASAD MD SR/NTS Conf#: [id number] DID#: [id number] CC: GILBERTO NÚÑEZ MD; TAHIR ROSE DO;*EndCC*
== END 2018-09-07 18:25 | DRG 563 ==
LOC: E/R 19:00 → 5EC 22:21 → OBSVTOIN 08-27 18:45
PROVIDERS: ADMIT Internal Medicine; ATTEND Internal Medicine
DX: S82.141A Displaced bicondylar fracture of right tibia, initial encounter for closed fracture (principal); N17.9 Acute kidney failure, unspecified; I50.22 Chronic systolic (congestive) heart failure; I42.9 Cardiomyopathy, unspecified; E44.0 Moderate protein-calorie malnutrition; W18.30XA Fall on same level, unspecified, initial encounter; D72.829 Elevated white blood cell count, unspecified; N28.9 Disorder of kidney and ureter, unspecified; R60.0 Localized edema; I34.0 Nonrheumatic mitral (valve) insufficiency; E03.9 Hypothyroidism, unspecified; B35.1 Tinea unguium; M20.42 Other hammer toe(s) (acquired), left foot; M20.41 Other hammer toe(s) (acquired), right foot; Z68.22 Body mass index [BMI] 22.0-22.9, adult; H91.90 Unspecified hearing loss, unspecified ear; M17.11 Unilateral primary osteoarthritis, right knee
CPT/HCPCS: 71045; 72170; 73550; 73562; 73590; 73700; 80048; 80053; 81001; 82962; 83880; 84439; 84443; 84484; 85025; 85610; 85730; 86850; 86900; 86901; 92610; 93005; 93306; 94640; 94664; 97110; 97162; 97530; 99217; A4310; G0378; J1940; L1832

== ENCOUNTER → 2018-09-17 | Outpatient (CLI) | payer BC ==
[~2018-09-17] MED LIST: FURO40TA4 PO; LEVO100T8 PO; LISI-313 PO; SPIR100T4 PO
--- NOTE | 2018-09-19 21:41 | CONS ---
Consult Date/Type/Reason Admit Date/Time Initial Consult Date Date/Time of Note DATE: 09/19/18 TIME: 21:37 Subjective 88-year-old female presents to clinic for 2-week follow-up for right Schatzker 3 tibial plateau fracture. She was originally seen in the hospital as an inpatient consult. She had a minimally depressed lateral tibial plateau fracture. Secondary to the minimal step-off, the patient's comorbidities, bone quality it was decided that time to pursue nonoperative management. She comes to clinic today in a wheelchair. She comes today on oxygen which is her baseline prior to her previous admission. Patient states pain is significantly better. She has been wearing the hinged knee brace as instructed and has been performing range of motion exercises. She has been nonweightbearing as instructed on the right lower extremity. Denies other complaints. Objective Vitals Weight: 125 pounds Height: 5 feet 2 inches Temperature: 88.4 Heart Rate: 77 Blood Pressure: 108/51 Respiratory Rate: 12 Exam General: Awake, alert, in no acute distress, pleasant and cooperative Heart: regular rhythm Lungs: breathing comfortably, no tachypnea or dyspnea MUSCULOSKELETAL: Right lower extremity: Skin intact. There is significant edema from the foot to the proximal tibia. Range of motion 0-90 degrees without pain. Sensation intact to light touch in a sural, saphenous, deep peroneal, superficial peroneal, medial and lateral plantar nerve distribution. Motor is intact, patient able to dorsiflex and plantarflex ankle and extend and flex great toe. Dorsalis Pedis pulse +2, Brisk capillary refill. Compartments are soft. Calves non-tender to palpation bilaterally. Results/Medications Home Meds Active Scripts Lisinopril* (Lisinopril*) 5 Mg Tablet, 2.5 MG PO QHS for 90 Days, #90 TAB Prov:MARYCRUZ PRASAD MD 09/07/18 Reported Medications Spironolactone* (Spironolactone*) 100 Mg Tablet, 25 MG PO DAILY, TAB 08/27/18 Furosemide* (Furosemide*) 40 Mg Tablet, 40 MG PO DAILY, TAB 08/26/18 Levothyroxine Sodium* (Levothyroxine Sodium*) 100 Mcg Tablet, 100 MCG PO BEFORE BREAKFAST, #30 TAB 08/26/18 Imaging 4 views of the right knee from an outside facility were reviewed: X-rays demonstrate a minimally depressed lateral tibial plateau fracture. This is unchanged from previous x-rays obtained while inpatient. Severe diffuse demineralization of the bones. Assessment/Plan Hospital Course (Demo Recall) 88-year-old female 2 weeks status post nonoperative treatment for right Schatzker 3 tibial plateau fracture. Overall the patient is doing well. Plan: Nonweightbearing right lower extremity Full range of motion of the right knee in brace Hinged knee brace at all times except for hygiene. The brace should be fully unlocked to allow full range of motion. Vitamin D and calcium supplementation patient should be evaluated by a medical physician for treatment of her severe osteoporosis. Follow-up 4 weeks with 4 views of the right knee. FRANCES BA MD Sep 19, 2018 21:41
== END | disposition home or self-care (01) ==
LOC: HKI 16:08
PROVIDERS: ATTEND Orthopaedic Surgery Adult Reconstructive Orthopaedic Surgery
DX: S82.141D Displaced bicondylar fracture of right tibia, subsequent encounter for closed fracture with routine healing (principal); X58.XXXD Exposure to other specified factors, subsequent encounter
CPT/HCPCS: G0463

== ENCOUNTER → 2018-10-14 | Outpatient (CLI) | payer BC ==
--- NOTE | 2018-10-14 17:45 | CONS ---
Consult Date/Type/Reason Admit Date/Time Initial Consult Date Date/Time of Note DATE: 10/14/18 TIME: 17:41 Subjective 88-year-old female with severe osteoporosis follow-up today 7 weeks status post right lateral tibial plateau depression fracture. She has been treated nonoperatively secondary to relatively minimal displacement and severe osteoporosis. She continues to be in the SNF. She continues to maintain nonweightbearing status. She continues to wear the hinged knee brace and is doing range of motion exercises. States her pain is well controlled. Objective Exam General: Awake, alert, in no acute distress, pleasant and cooperative Heart: regular rhythm Lungs: breathing comfortably, no tachypnea or dyspnea MUSCULOSKELETAL: Right lower extremity: Skin intact. There is significant improvement in the edema from the foot to the proximal tibia. Range of motion 0-90 degrees without pain. Mild tenderness to palpation over the lateral tibia. Sensation intact to light touch in a sural, saphenous, deep peroneal, superficial peroneal, medial and lateral plantar nerve distribution. Motor is intact, patient able to dorsiflex and plantarflex ankle and extend and flex great toe. Dorsalis Pedis pulse +2, Brisk capillary refill. Compartments are soft. Calves non-tender to palpation bilaterally. Results/Medications Home Meds Active Scripts Lisinopril* (Lisinopril*) 5 Mg Tablet, 2.5 MG PO QHS for 90 Days, #90 TAB Prov:MARYCRUZ PRASAD MD 09/07/18 Reported Medications Spironolactone* (Spironolactone*) 100 Mg Tablet, 25 MG PO DAILY, TAB 08/27/18 Furosemide* (Furosemide*) 40 Mg Tablet, 40 MG PO DAILY, TAB 08/26/18 Levothyroxine Sodium* (Levothyroxine Sodium*) 100 Mcg Tablet, 100 MCG PO BEFORE BREAKFAST, #30 TAB 08/26/18 Imaging 3 views of the right knee from outside facility were personally reviewed. Demonstrate isolated depression fracture lateral to plateau. Consistent with a Schatzker 3 tibial plateau fracture. The depression appears slightly increased from previous x-rays however this may be projectional. No other acute injury. Severe demineralization of the bone. Assessment/Plan Hospital Course (Demo Recall) 88-year-old female 7 weeks status post right Schatzker 3 tibial plateau fracture. She is being treated nonoperatively. Pain is minimal to none. She is only mildly tender to palpation. Range of motion is 0 to 90 degrees. Plan: Nonweightbearing right lower extremity for at least another 5 weeks for total of 12 weeks. Continue hinged knee brace with full range of motion exercises Continue vitamin D and calcium supplementation Follow-up 5 weeks with 3 views of the right knee. FRANCES BA MD Oct 14, 2018 17:45
== END | disposition home or self-care (01) ==
LOC: HKI 14:24
PROVIDERS: ATTEND Orthopaedic Surgery Adult Reconstructive Orthopaedic Surgery
DX: Z47.89 Encounter for other orthopedic aftercare (principal); S82.141G Displaced bicondylar fracture of right tibia, subsequent encounter for closed fracture with delayed healing; X58.XXXD Exposure to other specified factors, subsequent encounter
CPT/HCPCS: G0463

== ENCOUNTER → 2018-11-18 | Outpatient (CLI) | payer BC ==
--- NOTE | 2018-11-19 20:13 | CONS ---
Consult Date/Type/Reason Admit Date/Time Initial Consult Date Date/Time of Note DATE: 11/19/18 TIME: 20:09 Subjective 88-year-old female follows up today in clinic 12 weeks status post right lateral tibial plateau fracture. She has been treated nonoperatively. She has been in a SNF. Up until this point she was allowed range of motion as tolerated in hinged knee brace but was nonweightbearing given the fracture and her severe osteoporosis. She denies any pain. She continues to work with physical therapy. She has no complaints. The only issue is that insurance is no longer covering her stay at the SNF given that she has not made progress secondary to her restricted weightbearing status. Objective Vitals Temperature: 90.6 BP: 109/58 Pulse: 85 Exam General: Awake, alert, in no acute distress, pleasant and cooperative Heart: regular rhythm Lungs: breathing comfortably, no tachypnea or dyspnea MUSCULOSKELETAL: Right lower extremity: Range of motion is 10 to 90 degrees with no pain. Patient was able to stand with assistance and place place full weight on right lower extremity with no knee pain. Sensation intact to light touch in a sural, saphenous, deep peroneal, superficial peroneal, medial and lateral plantar nerve distribution. Motor is intact, patient able to dorsiflex and plantarflex ankle and extend and flex great toe. Dorsalis Pedis pulse +2, Brisk capillary refill. Compartments are soft. Calves non-tender to palpation bilaterally. Results/Medications Home Meds Active Scripts Lisinopril* (Lisinopril*) 5 Mg Tablet, 2.5 MG PO QHS for 90 Days, #90 TAB Prov:MARYCRUZ PRASAD MD 09/07/18 Reported Medications Spironolactone* (Spironolactone*) 100 Mg Tablet, 25 MG PO DAILY, TAB 08/27/18 Furosemide* (Furosemide*) 40 Mg Tablet, 40 MG PO DAILY, TAB 08/26/18 Levothyroxine Sodium* (Levothyroxine Sodium*) 100 Mcg Tablet, 100 MCG PO BEFORE BREAKFAST, #30 TAB 08/26/18 Imaging 3 views of the right knee from outside facility were personally reviewed. There is a depressed lateral tibial plateau fracture. This is unchanged from previous x-rays. Difficult to assess healing secondary to severe osteoporosis. Assessment/Plan Hospital Course (Demo Recall) 88-year-old female 12 weeks status post right lateral tibial plateau fracture. She has been treated nonoperatively as she was not a good surgical candidate and the fracture was minimally depressed. At this time she has clinical evidence of a healed fracture as she is able to bear weight without any pain. Healing diff icult to determine x-rays given severe osteoporosis. Given that she can now weight-bear as tolerated bilateral lower extremities I expect her to progress with physical therapy at the SNF. I believe the patient will benefit greatly from further halfway care and inpatient PT. Patient to follow-up in 6 weeks with 3 views of the right knee. FRANCES BA MD November 19, 2018 20:13
== END | disposition home or self-care (01) ==
LOC: HKI 14:44
PROVIDERS: ATTEND Orthopaedic Surgery Adult Reconstructive Orthopaedic Surgery
DX: S82.141D Displaced bicondylar fracture of right tibia, subsequent encounter for closed fracture with routine healing (principal); X58.XXXD Exposure to other specified factors, subsequent encounter
CPT/HCPCS: G0463